=== PATIENT | male | born 1980 | race Caucasian/White ===

== ENCOUNTER 2023-04-20 08:21 | Emergency (ER) | payer BC, SELFPAY ==
[2023-04-20] VITALS (52 sets, daily range): BP systolic 102–150; BP diastolic 63–94; PULSE 50–81; RESP 10–40; TEMP 36.8; O2SAT 84–100; BMI 29.1
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
--- NOTE | 2023-04-20 08:30 | DI.RAD.S_ITS ---
PROCEDURE: XR CHEST 1V INDICATIONS: chest pain TECHNIQUE: One view of the chest was acquired. COMPARISON: None. FINDINGS: Surgical changes and devices: Thecal leads. Cholecystectomy clips. Lungs and pleura: Lungs are clear. No pleural effusions or pneumothorax. Mediastinum: Mediastinal contours appear normal. Heart size is normal. Bones and chest wall: No suspicious bony lesions. Overlying soft tissues appear unremarkable. IMPRESSION: No acute cardiopulmonary abnormality is seen. Dictated by: Renny Cavanaugh M.D. on 04/20/2023 at 8:49 Approved by: Renny Cavanaugh M.D. on 04/20/2023 at 8:49
--- NOTE | 2023-04-20 08:35 | PC.NURSE ---
Pt's o2 decreased to 88%. I asked him to take a few deep breathes and his o2 increased to 96% room air. Shortly after patients o2 dropped again, see vitals. Pt was placed on 3L NC. Patient's mentation was decreased and provider immediately at bedside. Pt still not responding well and provider performed sternal rub with minimal reaction. Provider ordered narcan, see MAR. After administration of medication there was no change in patients condition. He is able to respond, open his eyes and move his hands but is lethargic. New orderes placed and patient taken to CT with RN and cardiac catheterization technician.
[2023-04-20] MEDS: ASPIRIN 81 MG CHEW TAB 324 MG PO (08:38)
[2023-04-20 08:39] LABS: Add Manual Diff / Slide Review NO; Basophils Absolute Auto 100 /uL (0-100); Basophils Percent Auto 1.1 % (0-2); Eosinophils Absolute Auto 0 /uL (0-450); Hematocrit 44.5 % (41-53); Hemoglobin 15.8 g/dL (13.5-17.5); Lymphocytes Absolute Auto 1500 /uL (1100-4500); Lymphocytes Percent Auto 16.7 % (25-40); Mean Corpuscular HGB Conc 35.6 % (30-36); Mean Corpuscular Hemoglobin 31.3 PG (26-34); Mean Corpuscular Volume 87.9 fL (80-100); Monocytes Absolute Auto 700 /uL (0-900); Monocytes Percent Auto 7.3 % (3-14); Neutrophils Absolute Auto 6900 /uL (1500-7000); Neutrophils Percent Auto 74.9 % (50-75); Platelet Count 170 X10^3/uL (150-400); Red Blood Cell Count 5.06 X10^6/uL (4.5-5.9); White Blood Cell Count 9.3 X10^3/uL (4.5-11.0)
[2023-04-20] MEDS: NITROGLYCERIN 0.4 MG SL TAB SL (08:39)
[2023-04-20] MEDS: ONDANSETRON 4 MG/2 ML INJ IV (08:39)
[2023-04-20] MEDS: SODIUM CHLORIDE 0.9% 1,000 ML 150 ML IV (08:40)
[2023-04-20 08:41] LABS: Prothrombin Time 11.1 SECONDS (9.4-12.5)
[2023-04-20 08:43] LABS: PTT Partial Thromboplastin Tim 29 SECONDS (25.1-36.5)
[2023-04-20 08:48] LABS: Alanine Aminotransferase 27 IU/L (<50); Albumin 4.5 g/dL (3.5-5.0); Albumin Globulin Ratio 1.5 (1.0-2.8); Alkaline Phosphatase 74 U/L (38-126); Aspartate Aminotransferase 40 IU/L (17-59); BUN Creatinine Ratio 17.3 (6-22); Blood Urea Nitrogen 18 mg/dL (9-20); Carbon Dioxide 25 mmol/L (22-32); Chloride 102 mmol/L (98-107); Creatine Kinase 122 U/L (55-170); Estimated Glomerular Filt Rate > 60 mL/min (>60); Glucose 108 mg/dL (70-100); HEMOLYSIS < 15 (0-50); Lipase 69 U/L (23-300); Potassium 4.3 mmol/L (3.4-5.1); Sodium 135 mmol/L (137-145); Total Protein 7.5 g/dL (6.3-8.2)
[2023-04-20] MEDS: NALOXONE 0.4 MG/ML VIAL 0.2 MG IV ×2 (08:55→08:58)
--- NOTE | 2023-04-20 08:58 | DI.CT.S_ITS ---
PROCEDURE: CT ANGIO CHEST PE PROTOCOL INDICATIONS: chest pain,shortnessofbreath TECHNIQUE: After the administration of intravenous contrast, 2 mm thick sections acquired from the pulmonary apices to the posterior costophrenic angles. 3-dimensional maximum intensity projection (MIP) coronal and sagittal reformats were then acquired through the thorax. For radiation dose reduction, the following was used: automated exposure control, adjustment of mA and/or kV according to patient size. COMPARISON: [facility], CR, XR CHEST 1V, 04/20/2023, 8:31. FINDINGS: Image quality: Diagnostic. Pulmonary arteries: Pulmonary arteries are normal in size, and demonstrate no intraluminal filling defects to suggest central pulmonary embolism. Lungs and pleura: Lungs are clear. No pleural effusions or pneumothorax. Central and peripheral airways are patent. Mediastinum: Heart size is normal, without pericardial effusion. No mediastinal or hilar adenopathy. Thoracic aorta is normal in caliber and enhancement. Esophagus is normal in caliber, without hiatal hernia. Bones and chest wall: No suspicious bony lesions. Ribs and thoracic spine appear intact throughout. No axillary or supraclavicular adenopathy. No thyroid nodules which require sonographic follow up, per consensus guidelines. Upper Abdomen: Simple left renal cyst. Otherwise, visualized upper abdominal solid organs appear normal in the early arterial phase of enhancement. IMPRESSION: No pulmonary embolus. No acute cardiopulmonary process. Dictated by: Cynthia Ziegler M.D. on 04/20/2023 at 9:36 Approved by: Cynthia Ziegler M.D. on 04/20/2023 at 9:40
--- NOTE | 2023-04-20 08:58 | DI.CT.S_ITS ---
PROCEDURE: CT HEAD/BRAIN WO CON INDICATIONS: chest pain,shortnessofbreath,new ams TECHNIQUE: Noncontrast 4.5 mm thick angled axial sections acquired from the foramen magnum to the vertex, with coronal and sagittal reformats. For radiation dose reduction, the following was used: automated exposure control, adjustment of mA and/or kV according to patient size. COMPARISON: None. FINDINGS: Image quality: Excellent. CSF spaces: Basal cisterns are patent. No extra-axial fluid collections. Ventricles are normal in size and shape. Brain: No midline shift. No intracranial masses or hemorrhage. See-white matter interface is normal. Skull and face: Calvarium and visualized facial bones are intact, without suspicious lesions. Sinuses: Visualized sinuses and mastoids are clear. IMPRESSION: 1. No acute intracranial process. Dictated by: Cynthia Ziegler M.D. on 04/20/2023 at 9:40 Approved by: Cynthia Ziegler M.D. on 04/20/2023 at 9:41
[2023-04-20 08:59] LABS: NT-proBNP (BNP-Adult 18+) < 20 pg/mL (<125); Troponin I < 0.012 ng/mL (0.01-0.034)
--- NOTE | 2023-04-20 09:00 | PC.NURSE ---
Patient states a couple years ago he was taking a shower and woke up in the hospital. Pt does not see a dna sequencing associate. He is unable to provide me with further information.
[2023-04-20 09:05] LABS: Ethanol (ETOH) < 10 mg/dL
[2023-04-20 09:10] LABS: D Dimer 220 ng/ml (<500)
--- NOTE | 2023-04-20 09:20 | PC.NURSE ---
RN with patient to CT. Patient on monitor and storage bin tender, maintaining o2 at 3L NC.
[2023-04-20 09:44] LABS: UR Morphine/Opiate cutoff 300 Negative (Negative); Ur Creatinine Normal (Normal); Ur Specific Gravity Normal (Normal); Urine Amphetamines Negative (Negative); Urine Barbiturates Negative (Negative); Urine Benzodiazepines Negative (Negative); Urine Cocaine Negative (Negative); Urine MDMA Negative (Negative); Urine Methadone Negative (Negative); Urine Methamphetamines Negative (Negative); Urine Oxycodone Negative (Negative); Urine Phencyclidine Negative (Negative); Urine Tetrahydrocannabinol Negative (Negative); Urine Tricyclic Antidepressant Negative (Negative); Urine pH Normal (Normal)
--- NOTE | 2023-04-20 09:50 | PC.NURSE ---
Pt unlocked his phone and provided me with his girlfriend Gibran's phone number to call. I got ahold of gibran and was able to pass the phone off to patient.
--- NOTE | 2023-04-20 10:55 | PC.NURSE ---
Pt having increased agitation, wants to get up out of bed and leave, is unable to fully open his eyes, having difficulty conversing his needs. Pt informed he needs to stay with us for his safety. Pt continuing to attempt to get out of bed. Provider at bedside, new orders placed see MAR. Pt received 2 separate doses of ativan and is now laying in bed. Oxygen saturation is good.
[2023-04-20] MEDS: LORazepam 2 MG/ML INJ 1 MG IV ×2 (10:57→11:14)
[2023-04-20 11:00] LABS: Troponin I < 0.012 ng/mL (0.01-0.034)
[2023-04-20] MEDS: levETIRAcetam 1,000 MG in SODIUM CHLORIDE 0.9% 100 ML 440 MG IV (11:16)
[2023-04-20 11:25] LABS: Prolactin 7.2 ng/mL (3.7-17.9)
--- NOTE | 2023-04-20 11:39 | PC.NURSE ---
provider at bedside with patient discussing plan of care. Patient currently cooperative and agrees to more imaging.
--- NOTE | 2023-04-20 11:42 | DI.CT.S_ITS ---
PROCEDURE: CT ANGIO HEAD AND NECK INDICATIONS: facial droop, seizure vs. stroke TECHNIQUE: After the administration of intravenous contrast, 1 mm thick sections acquired from the aortic arch through the [place] of [place]. 3-dimensional estwgqd-bcmrqtgsf-ynobsilrvh (MIP) and/or volume rendering reformats were acquired of the central intracranial vasculature and neck separately. For radiation dose reduction, the following was used: automated exposure control, adjustment of mA and/or kV according to patient size. COMPARISON: [facility], CT, CT HEAD/BRAIN WO CON, 04/20/2023, 9:12. FINDINGS: Image quality: Diagnostic. BRAIN: CSF spaces: Ventricles are normal in size and shape. Basal cisterns are patent. No extra-axial fluid collections. Brain: No significant abnormality of the brain can be seen. Skull and face: Calvarium and facial bones appear intact, without suspicious lesions. Orbits appear normal. Sinuses: Sinuses and mastoids are clear. HEAD CT ANGIOGRAPHY: Anterior circulation: Intracranial internal carotid arteries are normal in size and flow. The flow within the paired anterior cerebral arteries is normal and symmetric. The flow within the middle cerebral arteries is normal and symmetric. The anterior communicating artery is seen. No aneurysms are seen. Posterior circulation: Vertebral arteries are codominant. Visualized portions of the vertebral arteries demonstrate normal caliber, and join to form a normal appearing basilar artery. Flow within the posterior cerebral arteries is normal and symmetric. No aneurysms are seen. NECK CT ANGIOGRAPHY: Carotid system: The great vessels demonstrate a conventional anatomy as they arise from the aortic arch. The origins of the common carotid arteries appear patent. The common carotid arteries demonstrate normal caliber and courses. The bifurcation regions are both widely patent. The internal carotid arteries demonstrate normal calibers and courses. Posterior circulation: The origins of the vertebral arteries both appear widely patent. The more superior extracranial portions of both vertebral arteries also demonstrate normal courses and calibers. They join to form a normal appearing basilar artery. Soft tissues: Visualized neck soft tissues demonstrate no suspicious abnormalities. Bones: No suspicious bony lesions. Visualized cervical spine appears normally aligned. IMPRESSION: 1. No acute intracranial process. 2. No areas of hemodynamically significant stenosis, vascular occlusion or aneurysmal dilation within the anterior circulation. 3. No areas of hemodynamically significant stenosis, vascular occlusion or aneurysmal dilation within the neck vasculature. 4. No areas of hemodynamically significant stenosis, vascular occlusion or aneurysmal dilation within the posterior circulation. Any quantitative measurements of stenosis were performed using NASCET criteria. Dictated by: Cynthia Ziegler M.D. on 04/20/2023 at 13:16 Approved by: Cynthia Ziegler M.D. on 04/20/2023 at 13:21
--- NOTE | 2023-04-20 13:29 | PC.NURSE ---
Patient resting in bed, snoring. He is in and out of sleep and is still confused initially when he wakes up. Pt is cooperative at this time.
--- NOTE | 2023-04-20 14:41 | PC.NURSE ---
Pt able to stand and walk to the bathroom, he is still complaining of generalized weakness and slouching when he walks. Pt more alert and states he remembers us giving him narcan. Pt questioned why we administered narcan, I informed patient that because his oxygen decreased and mentation decreased we were concerned for a possible overdose. Pt expressed understanding. He is now back in bed laying down, bilingual social worker in the room with him.
--- NOTE | 2023-04-20 15:22 | CM.SWNOTE ---
ED FINISH PHOTOGRAPHER Note FINISH PHOTOGRAPHER receives consult due to patient's girlfriend's concern for patient's presentation and ED encounter today. Patient is 42 y/o male who presents to ED via EMS due to incident while driving to work patient felt SOB, dizzy, nauseous and chest pain. Patient had full work up in ED to rule out seizure vs. stroke. Patient's PCP is Dr. Talon Goodrich in [place], [place]. Patient has [employer] insurance. FINISH PHOTOGRAPHER enters room to meet with patient, present in room is patient's girlfriend who chooses to step out of room. Per [facility], patient has hx of Bipolar 1 disorder, undifferentiated Schizophrenia, and Generalized Seizure disorder. Patient presents as A/Ox4, fatigued and coherent. Patient endorses he lives in [place] with girlfriend and was on his way to work when he felt these symptoms. Patient endorses he remembers being administered Narcan by EMS. Patient states he does not use any drugs of any kind, takes his rx as prescribed and has been prescribed muscle relaxers due to chronic pain. Patient endorses he feels safe to d/c to home, patient denies any questions or concerns. FINISH PHOTOGRAPHER offers to contact patient's PCP and request f/u appt, patient endorses agreement and understanding. FINISH PHOTOGRAPHER calls Dr. Goodrich's office and schedules PCP f/u for Thursday04/27/23 at 12:05pm check in. FINISH PHOTOGRAPHER reviews this with patient and girlfriend who indicate agreement and understanding. Plan: patient to d/c to home upon medical clearance with Keppra rx and recommendation to f/u with Neurology referral. Patient to f/u with PCP Dr. Goodrich on Friday 04/27, patient to receive doctor's note from work. AZALEA Bobby
--- NOTE | 2023-04-20 15:37 | PC.NURSE ---
Patient given back his belongings to change into clothes. Security is present to transport pt's firearm to his girlfriend Sasha's possession when exiting the hospital.
== END 2023-04-20 15:39 | disposition home or self-care (01) ==
PROVIDERS: Emergency Provider Emergency Medicine
DX: R07.9 Chest pain, unspecified (principal); R56.9 Unspecified convulsions; N28.1 Cyst of kidney, acquired
CPT/HCPCS: 70450; 70496; 70498; 71045; 71275; 80053; 80305; 80320; 82550; 82962; 83690; 83880; 84146; 84443; 84484; 85025; 85379; 85610; 85730; 93005; 96365; 96375; 96376; 99285; J1953; J2060; J2310; J2405; Q9967

== ENCOUNTER → 2023-05-08 09:36 | Outpatient (CLI) | payer BC, SELFPAY ==
[2023-05-08 10:46] LABS: Hemoglobin A1C% w Est Avg Glu 4.9 % (4.0-6.0)
[2023-05-08 11:01] LABS: Cholesterol 199 mg/dL (140-199); HDL Cholesterol 58 mg/dL (40-60); LDL Cholesterol Calculated 110 mg/dL (<100); Triglycerides 156 mg/dL (35-150)
== END ==
PROVIDERS: PCP Family Medicine; Referring Provider Family Medicine; Visit Provider Family Medicine
DX: Z86.74 Personal history of sudden cardiac arrest (principal); R07.9 Chest pain, unspecified
CPT/HCPCS: 36415; 80061; 83036

== ENCOUNTER 2023-05-18 23:49 | Emergency (ER) | payer BC, MEDICARE, SELFPAY ==
[2023-05-18 23:56] VITALS: BP 122/78; PULSE 63; RESP 16; TEMP 36.6; O2SAT 97; BMI 27.3
== END 2023-05-19 00:30 | disposition left against medical advice (07) ==
PROVIDERS: Emergency Provider Emergency Medicine; PCP Family Medicine
DX: R06.02 Shortness of breath (principal)
CPT/HCPCS: 99281

== ENCOUNTER → 2023-05-21 09:22 | Outpatient (CLI) | payer BC, SELFPAY | PROVIDERS: PCP Family Medicine; Referring Provider Family Medicine; Visit Provider Family Medicine | DX: R06.02 Shortness of breath (principal); F17.200 Nicotine dependence, unspecified, uncomplicated | CPT/HCPCS: 94060; 94726; 94729 ==

== ENCOUNTER → 2023-05-25 09:30 | Outpatient (CLI) | payer BC, SELFPAY ==
--- NOTE | 2023-05-25 09:31 | DI.NM.S_ITS ---
PROCEDURE: NM NANDINI PERF SPECT R&S PHARM Rest and pharmacological stress myocardial perfusion SPECT with gated imaging and ejection fraction RADIOPHARMACEUTICAL: 25 mCi Tc-99m tetrafosmin IV at rest and 27.5 mCi Tc-99m tetrafosmin IV at peak effect of pharmacological stress. Uah-kcb-sxrkzhji was performed. INDICATIONS: chest pain, hx of cardiac arrest TECHNIQUE: Radiopharmaceutical was injected at peak stress test, and also at rest. SPECT images were obtained. SPECT myocardial perfusion images were displayed in short axis, horizontal long axis, and vertical long axis views. Gated images were reviewed using ID Quantique software. COMPARISON: None. CARDIAC STRESS: A pharmacologic stress test was performed under the supervision of an attending staff, using an infusion of lexiscan 0.4mg IV x1. Hemodynamic data: There is normal blood pressure and heart rate response to pharmacologic stress. Symptoms: The patient had chest pain at rest that worsened with lexiscan. Aminophylline: none EKG: No diagnostic changes of ischemia; no ectopy. FINDINGS: Raw data: There is good myocardial uptake of radiotracer. No significant motion artifacts. Left ventricle function: Gated images demonstrate normal left ventricular wall thickening. No segmental wall motion abnormalities. No transient ischemic dilation; TID is 0.93 (normal less than 1.3). Left ventricle resting end diastolic volume is 144 mL. Left ventricle stress ejection fraction is 69%; normal range is above 45%. Myocardial perfusion: No fixed or reversible perfusion defects based on stress prone images. IMPRESSION: Low risk, normal pharm nuclear stress test. Atypical chest pain at rest that worsened with lexiscan. Dictated by: Shahid Villalobos MD on 05/26/2023 at 12:50 Approved by: Shahid Villalobos MD on 05/26/2023 at 12:59
== END ==
PROVIDERS: PCP Family Medicine; Referring Provider Family Medicine; Visit Provider Family Medicine
DX: R07.9 Chest pain, unspecified (principal); Z86.74 Personal history of sudden cardiac arrest
CPT/HCPCS: 78452; 93017; A9502; J2785

== ENCOUNTER 2023-07-11 14:59 | Inpatient (IN) | payer BC, SELFPAY ==
[2023-07-11] VITALS (14 sets, daily range): BP systolic 113–148; BP diastolic 71–89; PULSE 54–71; RESP 16–24; TEMP 36.6; O2SAT 95–100; BMI 29.7
--- NOTE | 2023-07-11 15:17 | ED_ITS ---
HPI - GI Bleed General Chief complaint: GI Bleed Stated complaint: abd pain, concerned GI bleed, blood in stool Time Seen by Provider: 07/11/23 15:17 Source: patient Mode of arrival: Ambulatory History of Present Illness HPI Narrative: 42-year-old gentleman with a history of bipolar disorder currently stable, attempting to stop smoking and making progress with this. No prior history of upper GI bleeding, ulcers, excessive ibuprofen, aspirin, alcohol use. he does have a history of hemorrhoids and is scheduled for colonoscopy. Has a history of congestive heart failure and had a cardiac event at some point last year. He has not currently on any anticoagulants. He states he was feeling fine until approximately 3 hours prior to arrival. Began having crampy abdominal pain and then noticed an episode of melena followed by 3 other episodes of dark red blood with clots and increasing abdominal pain. He is nauseated but has not been vomiting yet. Complains of overall gentleman malaise, he does note that he has been having intermittent episodes of chest pain over the last number of weeks that seems intermittent and described as sharp and stabbing. He has had no recent fevers, cough, chills Related Data Home Medications Medication Instructions Recorded Confirmed buspirone 5 mg tablet 5 mg PO BID 04/28/23 07/09/23 lamotrigine 100 mg tablet 100 mg PO DAILY 04/28/23 07/09/23 (Lamictal) paroxetine HCl 10 mg tablet 10 mg PO DAILY 04/28/23 07/09/23 tizanidine 2 mg capsule 2 mg PO TID PRN 04/28/23 07/09/23 Previous Rx's Medication Instructions Recorded varenicline 0.5 mg (11)-1 mg (42) See Rx Instructions PO PER PKG DIR 06/09/23 tablets in a dose pack (LoveThatFittix #53 ea Starting Month Box) Allergies Allergy/AdvReac Type Severity Reaction Status Date / Time tramadol Allergy Verified 07/11/23 18:54 Review of Systems Review of Systems Narrative: Pertinent positive and negative findings as per HPI Patient History Medical History Chest pain Back pain Tremor Bipolar 1 disorder Renal cyst Surgical History History of cholecystectomy Social History marital status: unmarried,living together details: GF number of children: 1 occupational status: employed Previous occupational history: utilities Smoking Status: Current some day smoker Smoking Status: Current some day smoker tobacco type: cigarettes alcohol intake frequency: 0-2 drinks per day Alcohol type: beer Substance Use Type: does not use Exam Initial Vital Signs Initial Vital Signs: Vital Signs Temperature 97.9 F 07/11/23 15:00 Pulse Rate 69 07/11/23 15:00 Respiratory Rate 18 07/11/23 15:00 Blood Pressure 133/89 07/11/23 15:00 Pulse Oximetry 97 07/11/23 15:00 Oxygen Delivery Method Room Air 07/11/23 15:00 General: Healthy appearing, with moderate abdominal pain but Able to give a complete and coherent history. Well-nourished well-developed HEENT: Moist mucous membranes, normal sclera with reactive pupils, Neck: No JVD, supple Respiratory: Lungs are clear to auscultation, no wheezing no rales no rhonchi. Full and symmetrical air movement Cardiac: Regular rate and rhythm no murmurs no bruits Abdomen: Soft, diffusely tender with significant pain in the epigastrium and left upper quadrant area. No rebound or guarding. Rectal exam does show melena. No hematochezia. Skin: Warm and dry, no rashes Neurologic: Grossly neurologically intact with no obvious asymmetries or abnormalities Extremities: No trauma, well perfused Psych: Cooperative, appropriate insight and affect Course Orders Ordered: ED Orders 07/11/23 15:16 Complete Blood Count AUTO DIFF Stat Comprehensive Metabolic Panel Stat Lactate (Lactic Acid) Stat Lipase Stat Type and Screen Stat 07/11/23 15:27 EKG-12 Lead Stat 07/11/23 16:18 CT abdomen pelvis w con Stat 07/11/23 16:35 Hemoglobin and Hematocrit Stat 07/11/23 18:30 Blood Culture Stat Hydromorphone HCl (Hydromorphone 0.5 Mg Inj) 0.5 mg IV Q15MIN PRN PRN Reason: Pain, Last Admin: 07/11/23 16:53 Dose: 0.5 mg Documented By: Admin: 07/11/23 15:57 Dose: 0.5 mg Documented By: KD Hydromorphone HCl (Hydromorphone 0.5 Mg Inj) 0.5 mg IV Q2H PRN PRN Reason: Pain, Severe (7-10) Sodium Chloride (Normal Saline 0.9%) 1,000 mls @ 100 mls/hr IV CONT RENNY Naloxone HCl (Naloxone 0.4 Mg/Ml Vial) 0.2 mg IV Q2MIN PRN PRN Reason: Opiate Reversal Ondansetron HCl (Ondansetron 4 Mg/2 Ml Inj) 4 mg IV NOW PRN PRN Reason: Nausea And Vomiting Ondansetron HCl (Ondansetron 4 Mg Odt) 4 mg PO NOW PRN PRN Reason: Nausea And Vomiting Ondansetron HCl (Ondansetron 4 Mg/2 Ml Inj) 4 mg IV Q8HR PRN PRN Reason: Nausea And Vomiting Discontinued Medications Sodium Chloride (Normal Saline 0.9%) 1,000 mls @ 1,000 mls/hr IV BOLUS ONE Stop: 07/11/23 16:36 Last Infusion: 07/11/23 16:55 Dose: Infused Documented By: Admin: 07/11/23 15:55 Dose: 1,000 mls/hr Documented By: KD Piperacillin Sod/Tazobactam (Sod 4.5 gm/ Sodium Chloride) 100 mls @ 200 mls/hr IV NOW ONE Stop: 07/11/23 18:31 Ondansetron HCl (Ondansetron 4 Mg/2 Ml Inj) 4 mg IV NOW ONE Stop: 07/11/23 15:38 Last Admin: 07/11/23 15:57 Dose: 4 mg Documented By: KD Pantoprazole Sodium (Pantoprazole 40 Mg Vial) 80 mg IV NOW ONE Stop: 07/11/23 15:38 Last Admin: 07/11/23 15:56 Dose: 80 mg Documented By: KD Vital Signs Vital signs: Vital Signs - 8 hr 07/11/23 15:00 07/11/23 15:36 07/11/23 15:38 Temperature 97.9 F Pulse Rate 69 65 Respiratory Rate 18 Blood Pressure 133/89 128/81 Pulse Oximetry 97 Oxygen Delivery Method Room Air 07/11/23 15:38 07/11/23 16:00 07/11/23 16:30 Temperature Pulse Rate 64 65 57 L Respiratory Rate 22 20 22 Blood Pressure Pulse Oximetry 98 98 100 Oxygen Delivery Method 07/11/23 16:49 07/11/23 16:49 07/11/23 17:00 Temperature Pulse Rate 65 63 Respiratory Rate 24 22 Blood Pressure 143/82 H Pulse Oximetry 99 98 Oxygen Delivery Method 07/11/23 17:00 07/11/23 17:46 07/11/23 17:48 Temperature Pulse Rate 61 Respiratory Rate Blood Pressure 139/84 148/81 H Pulse Oximetry 97 Oxygen Delivery Method 07/11/23 17:48 07/11/23 18:00 07/11/23 18:00 Temperature Pulse Rate 56 L 59 L Respiratory Rate 19 23 Blood Pressure 139/89 Pulse Oximetry 95 99 Oxygen Delivery Method 07/11/23 18:30 07/11/23 18:30 Temperature Pulse Rate 58 L Respiratory Rate 23 Blood Pressure 132/88 Pulse Oximetry 99 99 Oxygen Delivery Method Room Air MDM - GI Bleed Lab Data 07/11/23 16:35 07/11/23 15:16 Labs: Lab Results 07/11/23 07/11/23 Range/Units 15:16 16:35 WBC 7.9 (4.5-11.0) X10^3/uL RBC 4.46 L (4.5-5.9) X10^6/uL Hgb 14.2 12.9 L (13.5-17.5) g/dL Hct 40.8 L 36.9 L (41-53) % MCV 91.4 (80-100) fL MCH 31.9 (26-34) PG MCHC 34.9 (30-36) % RDW 13.1 (11.6-14.8) % Plt Count 178 (150-400) X10^3/uL Neut % (Auto) 68.6 (50-75) % Lymph % (Auto) 21.9 L (25-40) % [place] % (Auto) 8.4 (3-14) % Eos % (Auto) 0.1 L (2-4) % Baso % (Auto) 1.0 (0-2) % Neut # (Auto) 5400 (0855-7169) /uL Lymph # (Auto) 1700 (7358-9699) /uL [place] # (Auto) 700 (0-900) /uL Eos # (Auto) 0 (0-450) /uL Baso # (Auto) 100 (0-100) /uL Sodium 137 (137-145) mmol/L Potassium 4.4 (3.4-5.1) mmol/L Chloride 99 (98-107) mmol/L Carbon Dioxide 28 (22-32) mmol/L BUN 20 (9-20) mg/dL Creatinine 1.18 (0.66-1.25) mg/dL Estimated GFR > 60 (>60) mL/min BUN/Creatinine Ratio 16.9 (6-22) Glucose 105 H (70-100) mg/dL Calcium 9.2 (8.4-10.2) mg/dL Total Bilirubin 0.5 (0.2-1.3) mg/dL AST 38 (17-59) IU/L ALT 26 (<50) IU/L Alkaline Phosphatase 85 (38-126) U/L Total Protein 7.3 (6.3-8.2) g/dL Albumin 4.3 (3.5-5.0) g/dL Globulin 3.0 (1.7-4.1) g/dL Albumin/Globulin Ratio 1.4 (1.0-2.8) Lipase 141 (23-300) U/L Blood Type O Positive Antibody Screen Negative Urine Dip Bedside Urine Glucose Negative Bedside Urine Bilirubin - Negative Bedside Urine Ketone - Negative Urine Specific [place] 1.010 Bedside Urine Occult Blood - Negative Bedside Urine pH 6.0 Bedside Urine Protein - Negative Bedside Urine Urobilinogen - Negative Bedside Urine Nitrite - Negative Bedside Urine Leukocytes - Negative Esterase MDM Narrative Medical decision making narrative: CC: Acute onset abdominal pain with 3 episodes of melena Complicating co-morbidities: No prior history of GI bleeding, bipolar disorder use a smoker but trying to stop, history of congestive heart failure Data collected from: patient, partner Medical records reviewed: Cardiology notes from June 11, 2023 with referral for chest pain or reviewed. Was not felt to be significant chest pain with nuclear myocardial perfusion study in May showing low risk. Echocardiogram is ordered. Medical records from the cardiology notes suggest that the patient also carries a diagnosis is schizophrenia and possible seizure disorder. Patient did not offer this Differential considered: Upper GI bleed, lower GI bleed Exam documented above, pertinent findings include: 42-year-old gentleman who is acutely uncomfortable but able to fully cooperate with exam. Significant upper abdominal tenderness with moderate diffuse abdominal tenderness. He is having melena without hematochezia Lab Test results independently reviewed as above. Pertinent findings: CBC shows H and H of 14.2 and 40.8. This compares to 2 months ago with a hemoglobin of 15.8 and 44.5. No leukocytosis and normal platelets Chemistries including liver studies are entirely benign. No evidence of acute pancreatitis Independently reviewed EKG: EKG shows sinus rhythm at a rate of 61. Normal intervals, normal axis. No acute ischemic changes Imaging studies independently reviewed: Consultations: Care is reviewed with Dr. Aleman, surgeon on-call. Given his hemodynamic stability, not obvious initial anemia and significant abdominal pain she agrees with CT scan of the abdomen to see if alternate explanations for his bleeding and pain might be identified. CT scan returns and shows generalized wall thickening beginning at the level of the mid transverse colon down through the rectum. Proximal colon is within normal limits. This is the watershed area and Dr. Aleman felt that this was consistent with ischemic colitis. She will happily consult. Supportive management would be appropriate at this time. Care is reviewed with Dr. Parkinson, hospitalist. Will obtain lactic acid and blood cultures and begin Zosyn. Treatments: Fluids, parenteral Dilaudid Discussion: 42-year-old gentleman with acute onset abdominal pain and what initially seemed to be melena and what is more likely to be sloughing colon due to ischemic colitis. There has been a slight drop in H&H but certainly not dramatic upper GI bleed that it would explain the degree of melena that he is described. Patient will be admitted to the hospitalist service for additional observation and workup with surgical consultation obtained. Patient currently is hemodynamically stable and safe for transfer to the floor Discharge Plan Departure Patient Disposition: Admitted As Inpatient Clinical Impression: Acute ischemic colitis, Bipolar 1 disorder Anemia Qualifiers: Anemia type: unspecified type Qualified Code(s): D64.9 - Anemia, unspecified Admit Date/Time: 07/11/23 18:35 Admit Provider: Facundo Parkinson
[2023-07-11 15:32] LABS: Add Manual Diff / Slide Review NO; Basophils Absolute Auto 100 /uL (0-100); Eosinophils Absolute Auto 0 /uL (0-450); Eosinophils Percent Auto 0.1 % (2-4); Hematocrit 40.8 % (41-53); Hemoglobin 14.2 g/dL (13.5-17.5); Lymphocytes Absolute Auto 1700 /uL (1100-4500); Lymphocytes Percent Auto 21.9 % (25-40); Mean Corpuscular HGB Conc 34.9 % (30-36); Mean Corpuscular Hemoglobin 31.9 PG (26-34); Mean Corpuscular Volume 91.4 fL (80-100); Monocytes Absolute Auto 700 /uL (0-900); Monocytes Percent Auto 8.4 % (3-14); Neutrophils Absolute Auto 5400 /uL (1500-7000); Neutrophils Percent Auto 68.6 % (50-75); Platelet Count 178 X10^3/uL (150-400); Red Blood Cell Count 4.46 X10^6/uL (4.5-5.9); Red Cell Distribution Width 13.1 % (11.6-14.8); White Blood Cell Count 7.9 X10^3/uL (4.5-11.0)
[2023-07-11 15:49] LABS: Alanine Aminotransferase 26 IU/L (<50); Albumin 4.3 g/dL (3.5-5.0); Albumin Globulin Ratio 1.4 (1.0-2.8); Alkaline Phosphatase 85 U/L (38-126); Aspartate Aminotransferase 38 IU/L (17-59); BUN Creatinine Ratio 16.9 (6-22); Bilirubin Total 0.5 mg/dL (0.2-1.3); Blood Urea Nitrogen 20 mg/dL (9-20); Calcium 9.2 mg/dL (8.4-10.2); Carbon Dioxide 28 mmol/L (22-32); Chloride 99 mmol/L (98-107); Estimated Glomerular Filt Rate > 60 mL/min (>60); Glucose 105 mg/dL (70-100); HEMOLYSIS < 15 (0-50); Lipase 141 U/L (23-300); Potassium 4.4 mmol/L (3.4-5.1); Sodium 137 mmol/L (137-145); Total Protein 7.3 g/dL (6.3-8.2)
[2023-07-11] MEDS: SODIUM CHLORIDE 0.9% 1,000 ML 1000 ML IV (15:55)
[2023-07-11] MEDS: PANTOPRAZOLE 40 MG VIAL 80 MG IV (15:56)
[2023-07-11] MEDS: HYDROMORPHONE 0.5 MG INJ IV ×4 (15:57→22:02)
[2023-07-11] MEDS: ONDANSETRON 4 MG/2 ML INJ IV ×2 (15:57→22:02)
--- NOTE | 2023-07-11 16:18 | DI.CT.S_ITS ---
PROCEDURE: CT ABDOMEN PELVIS W CON INDICATIONS: abdominal pain. The patient gives additional history of hematochezia. TECHNIQUE: After the administration of intravenous contrast, axial sections acquired from the lung bases to the pubic symphysis. Coronal and sagittal reformats were performed. For radiation dose reduction, the following was used: automated exposure control, adjustment of mA and/or kV according to patient size. COMPARISON: [facility], CT, CT ANGIO CHEST PE PROTOCOL, 04/20/2023, 9:12. FINDINGS: Image quality: Diagnostic. Lower Chest: There is a small hiatal hernia. ABDOMEN: Liver: No solid mass. Gallbladder: Cholecystectomy. Biliary ducts: No biliary dilation. Pancreas: No ductal dilation. Spleen: Size is within normal limits. Adrenal Glands: No adrenal nodules. Kidneys and Ureters: There is mild right-sided hydronephrosis and hydroureter, without a cause of obstruction seen. No left-sided hydronephrosis is seen. No solid mass. No complex renal cystic lesion which requires follow up. Stomach and Bowel: Generalized wall thickening can be seen of the distal colon, beginning at the level of the mid transverse colon and continuing through the rectum. The more proximal colon is within normal limits. No dilated loops of small bowel are seen. A normal appendix is noted. The stomach is decompressed at the time of this study, limiting its evaluation. Peritoneum: No abnormal intraperitoneal fluid. No free air. Ventral Wall: No significant ventral hernia. Abdominal Nodes: No retroperitoneal or mesenteric adenopathy by size criteria. Vessels: Aorta and inferior vena cava are normal in size. PELVIS: Pelvic Organs: Unremarkable. Bladder: No bladder wall thickening, accounting for underdistention. Pelvic Nodes: No enlarged lymph nodes. Miscellaneous: No inguinal hernias are seen. Bones: No aggressive osseous abnormality. There is a right-sided power pack seen with a thoracic stimulator. IMPRESSION: Moderate distal colonic wall thickening can be seen. Please correlate with potential infectious and inflammatory causes of colitis. No findings of perforation or abscess can be seen. When clinically appropriate (following adequate treatment of the patient's current clinical episode) a colonoscopy is recommended for further evaluation for a potential underlying mass (if not already recently done). There is mild right-sided hydroureter and hydronephrosis, without a cause of obstruction seen on these images. Additional findings: Small hiatal hernia Cholecystectomy Thoracic stimulator, with a right-sided power pack Normal appendix Dictated by: Kory Dominguez M.D. on 07/11/2023 at 16:17 Approved by: Kory Dominguez M.D. on 07/11/2023 at 16:20
[2023-07-11 16:47] LABS: Hematocrit 36.9 % (41-53); Hemoglobin 12.9 g/dL (13.5-17.5)
--- NOTE | 2023-07-11 18:43 | PM.HP.1 ---
History of Present Illness History of Present Illness Date Patient Seen: 07/11/23 Time Patient Seen: 18:43 Chief complaint: abd pain, concerned GI bleed, blood in stool Narrative: The patient is a 42-year-old male with history of tobacco use and now does not smoke. He also has a history of possible heart failure which is being evaluated by a display trimmer at [facility]. The patient has history of polyps in his had 6 colonoscopies in the past. He presents with acute lower abdominal pain and passing dark-colored blood 3-4 times today. His symptoms all began today and he denies any issues yesterday. He has had no recent diarrhea, nausea, or vomiting. He has no history of GI bleeding. He was seen in the emergency department and a CT scan indicated ischemic colitis of the transverse and descending colon. The patient was discussed with Dr. Aleman, of surgery who recommended symptomatic treatment with IV fluids, antibiotics, and blood if required. The patient has no other symptoms of anemia including dyspnea or chest pain. He does feel somewhat fatigued. His pain is in the left and right lower quadrant and does not radiate. It is episodic. He does note a history of opiate tolerance from previous injuries and long-term use of opiates. He has not currently using long-term opiates. [facility] Medical History Chest pain Back pain Tremor Bipolar 1 disorder Renal cyst Surgical History History of cholecystectomy Social History marital status: unmarried,living together details: GF number of children: 1 occupational status: employed Previous occupational history: utilities Smoking Status: Current some day smoker Meds Home Medications and Allergies Home Medications Medication Instructions Recorded Confirmed Type buspirone 5 mg tablet 5 mg PO BID 04/28/23 07/09/23 History lamotrigine 100 mg tablet 100 mg PO DAILY 04/28/23 07/09/23 History (Lamictal) paroxetine HCl 10 mg tablet 10 mg PO DAILY 04/28/23 07/09/23 History tizanidine 2 mg capsule 2 mg PO TID PRN 04/28/23 07/09/23 History varenicline 0.5 mg (11)-1 mg (42) See Rx Instructions PO PER PKG DIR 06/09/23 07/09/23 Rx tablets in a dose pack ([employer] #53 ea Starting Month Box) Allergies Allergy/AdvReac Type Severity Reaction Status Date / Time tramadol Allergy Verified 07/09/23 07:58 Review of Systems Review of Systems Narrative: All else reviewed and otherwise unremarkable except as noted in the history and physical. Exam Vital Signs (past 8 hours): - 07/11/23 15:00 07/11/23 15:36 07/11/23 15:38 Temperature 97.9 F Pulse Rate 69 65 Respiratory Rate 18 Blood Pressure 133/89 128/81 Pulse Oximetry 97 Oxygen Delivery Method Room Air 07/11/23 15:38 07/11/23 16:00 07/11/23 16:30 Temperature Pulse Rate 64 65 57 L Respiratory Rate 22 20 22 Blood Pressure Pulse Oximetry 98 98 100 Oxygen Delivery Method 07/11/23 16:49 07/11/23 16:49 07/11/23 17:00 Temperature Pulse Rate 65 63 Respiratory Rate 24 22 Blood Pressure 143/82 H Pulse Oximetry 99 98 Oxygen Delivery Method 07/11/23 17:00 07/11/23 17:46 07/11/23 17:48 Temperature Pulse Rate 61 Respiratory Rate Blood Pressure 139/84 148/81 H Pulse Oximetry 97 Oxygen Delivery Method 07/11/23 17:48 07/11/23 18:00 07/11/23 18:00 Temperature Pulse Rate 56 L 59 L Respiratory Rate 19 23 Blood Pressure 139/89 Pulse Oximetry 95 99 Oxygen Delivery Method 07/11/23 18:30 07/11/23 18:30 Temperature Pulse Rate 58 L Respiratory Rate 23 Blood Pressure 132/88 Pulse Oximetry 99 Oxygen Delivery Method Oxygen Delivery Method Room Air Narrative Exam Narrative: NAD, slightly uncomfortable. Fluent speech. HEENT atraumatic, EOMI, anicteric sclera, symmetric pupils. Oropharynx unremarkable, no droop. Neck is supple, no adenopathy, midline trachea. Lungs are clear with normal rate and effort. Heart is regular without murmur gallop or rub. Abdomen is tender in the right and left lower quadrants without guarding or rebound. Extremities are free of edema with good pedal and radial pulses. Skin is free of rash or lesions. Joints are not swollen or deformed. Objective Imaging CT scan - abdomen: Radiologist's impression: Moderate distal colonic wall thickening can be seen. Please correlate with potential infectious and inflammatory causes of colitis. No findings of perforation or abscess can be seen. When clinically appropriate (following adequate treatment of the patient's current clinical episode) a colonoscopy is recommended for further evaluation for a potential underlying mass (if not already recently done). There is mild right-sided hydroureter and hydronephrosis, without a cause of obstruction seen on these images. Additional findings: Small hiatal hernia Cholecystectomy Thoracic stimulator, with a right-sided power pack Normal appendix Labs 07/11/23 16:35 07/11/23 15:16 Labs: Laboratory Results - last 24 hr 07/11/23 07/11/23 15:16 16:35 WBC 7.9 RBC 4.46 L Hgb 14.2 12.9 L Hct 40.8 L 36.9 L MCV 91.4 MCH 31.9 MCHC 34.9 RDW 13.1 Plt Count 178 Neut % (Auto) 68.6 Lymph % (Auto) 21.9 L [place] % (Auto) 8.4 Eos % (Auto) 0.1 L Baso % (Auto) 1.0 Neut # (Auto) 5400 Lymph # (Auto) 1700 [place] # (Auto) 700 Eos # (Auto) 0 Baso # (Auto) 100 Sodium 137 Potassium 4.4 Chloride 99 Carbon Dioxide 28 BUN 20 Creatinine 1.18 Estimated GFR > 60 BUN/Creatinine Ratio 16.9 Glucose 105 H Calcium 9.2 Total Bilirubin 0.5 AST 38 ALT 26 Alkaline Phosphatase 85 Total Protein 7.3 Albumin 4.3 Globulin 3.0 Albumin/Globulin Ratio 1.4 Lipase 141 Blood Type O Positive Antibody Screen Negative Assessment & Plan Assessment & Plan narrative: 1. Rectal bleeding, present on admission and active. 2. Probable ischemic colitis of the transverse and descending colon, present on admission and active. 3. Bipolar 1, present on admission and stable. 4. History of recurrent colonic polyps and multiple colonoscopies in the past, present on admission and active. 5. History of congestive heart failure with other details not available, present on admission and stable. Plan: -IV fluids and IV Zosyn. -surgery has been consulted and we will follow. No plans for intervention. -serial hemoglobin and blood transfusion support only if needed. -analgesia. Patient is full resuscitation. His is proxy decision maker. Quality MIPS - Admit I confirm the patient?s Advance Care Plan is present, Code status is documented, Surrogate decision maker is in patient?s record [If Yes, STOP here]: Yes MIPS - Meds 'Current medications' to include all prescriptions, [id number] products, herbals, cannabis/cannabidiol products, and vitamin/mineral/dietary (nutritional) supplements. I have utilized all available resources to obtain, update, or review the patient?s current medications. [If Yes, STOP here]: Yes
[2023-07-11 19:08] LABS: Lactate (Lactic Acid) 1.5 mmol/L (0.7-2.1)
[2023-07-11] MEDS: PIPERACILLIN/TAZO 4.5 GM in SODIUM CHLORIDE 0.9% 100 ML IV (19:23)
[2023-07-11] MEDS: SODIUM CHLORIDE 0.9% 1,000 ML 100 ML IV (19:23)
[2023-07-11] MEDS: BUSPIRONE 5 MG TABLET PO (21:59)
[2023-07-11] MEDS: lamoTRIgine 100 MG TABLET 300 MG PO (21:59)
[2023-07-11 23:46] LABS: Hematocrit 36.7 % (41-53); Hemoglobin 12.7 g/dL (13.5-17.5)
[2023-07-12] MEDS: HYDROMORPHONE 0.5 MG INJ IV ×4 (00:12→08:08)
[2023-07-12] MEDS: ONDANSETRON 4 MG/2 ML INJ IV ×5 (02:11→23:49)
[2023-07-12 04:00] VITALS: BP 105/65; PULSE 62; RESP 16; TEMP 36.8; O2SAT 96
[2023-07-12] MEDS: SODIUM CHLORIDE 0.9% 1,000 ML 100 ML IV ×2 (04:43→16:16)
[2023-07-12 05:22] LABS: Add Manual Diff / Slide Review NO; Basophils Absolute Auto 0 /uL (0-100); Basophils Percent Auto 0.7 % (0-2); Eosinophils Absolute Auto 0 /uL (0-450); Eosinophils Percent Auto 0.2 % (2-4); Hematocrit 34.6 % (41-53); Hemoglobin 12.1 g/dL (13.5-17.5); Lymphocytes Absolute Auto 1200 /uL (1100-4500); Lymphocytes Percent Auto 24.1 % (25-40); Mean Corpuscular Hemoglobin 32.1 PG (26-34); Mean Corpuscular Volume 91.6 fL (80-100); Monocytes Absolute Auto 600 /uL (0-900); Monocytes Percent Auto 11.1 % (3-14); Neutrophils Absolute Auto 3200 /uL (1500-7000); Neutrophils Percent Auto 63.9 % (50-75); Platelet Count 131 X10^3/uL (150-400); Red Blood Cell Count 3.78 X10^6/uL (4.5-5.9); Red Cell Distribution Width 13.2 % (11.6-14.8)
[2023-07-12 05:35] LABS: HEMOLYSIS < 15 (0-50); Potassium 4.2 mmol/L (3.4-5.1)
[2023-07-12 05:36] LABS: BUN Creatinine Ratio 12.7 (6-22); Blood Urea Nitrogen 15 mg/dL (9-20); Calcium 8.3 mg/dL (8.4-10.2); Carbon Dioxide 26 mmol/L (22-32); Chloride 105 mmol/L (98-107); Estimated Glomerular Filt Rate > 60 mL/min (>60); Glucose 97 mg/dL (70-100); Sodium 135 mmol/L (137-145)
--- NOTE | 2023-07-12 07:50 | PM.PN.1 ---
Subjective Subjective Interval history: 42 year old male was admitted on July 11 with acute abdominal pain as well as dark colored bloody stool. CT scan was consistent with a ischemic colitis from the transverse through descending colon. Dr. Aleman of surgery advise symptomatic treatment with IV fluids and antibiotics. The patient is doing well and is having his hemoglobin trended. He has no history of this but does have extensive history of tobacco use. Also has a history of an unclear cardiac problem being evaluated by Dr. Loomis at [facility]. There is a suggestion of right mild hydroureter and hydronephrosis on the CT scan without clear explanation for cause. S: He is still having tenderness in the abdomen but it does feel better than yesterday. No nausea. No rectal bleeding overnight. Discussed with Dr. Aleman of surgery. We will continue IV fluids. We will also check a lipid panel. He does have a history of hyperlipidemia, with a familial pattern per his report. He has been on medications for this. Exam Vital Signs (past 8 hours): - 07/12/23 04:00 Temperature 98.2 F Pulse Rate 62 Respiratory Rate 16 Blood Pressure 105/65 Pulse Oximetry 96 Oxygen Flow Rate 0 Oxygen Delivery Method Room Air Oxygen Flow Rate 0 Narrative Exam Narrative: NAD, alert and oriented. Fluent speech. Lungs are clear, normal rate and effort. Heart is regular, no murmur gallop or rub. Abdomen is soft, non distended. He remains tender in the left greater than the right lower quadrant and some degree in the left upper quadrant. No guarding or rebound. Extremities are free of edema. Objective Imaging CT scan - abdomen: Radiologist's impression: Radiologist's impression: Moderate distal colonic wall thickening can be seen. Please correlate with potential infectious and inflammatory causes of colitis. No findings of perforation or abscess can be seen. When clinically appropriate (following adequate treatment of the patient's current clinical episode) a colonoscopy is recommended for further evaluation for a potential underlying mass (if not already recently done). There is mild right-sided hydroureter and hydronephrosis, without a cause of obstruction seen on these images. Labs 07/12/23 04:48 07/12/23 04:48 Labs: Laboratory Results - last 24 hr 07/11/23 07/11/23 07/11/23 15:16 16:35 23:33 WBC 7.9 RBC 4.46 L Hgb 14.2 12.9 L 12.7 L Hct 40.8 L 36.9 L 36.7 L MCV 91.4 MCH 31.9 MCHC 34.9 RDW 13.1 Plt Count 178 Neut % (Auto) 68.6 Lymph % (Auto) 21.9 L [place] % (Auto) 8.4 Eos % (Auto) 0.1 L Baso % (Auto) 1.0 Neut # (Auto) 5400 Lymph # (Auto) 1700 [place] # (Auto) 700 Eos # (Auto) 0 Baso # (Auto) 100 Sodium 137 Potassium 4.4 Chloride 99 Carbon Dioxide 28 BUN 20 Creatinine 1.18 Estimated GFR > 60 BUN/Creatinine Ratio 16.9 Glucose 105 H Lactate 1.5 Calcium 9.2 Total Bilirubin 0.5 AST 38 ALT 26 Alkaline Phosphatase 85 Total Protein 7.3 Albumin 4.3 Globulin 3.0 Albumin/Globulin Ratio 1.4 Lipase 141 Blood Type O Positive Antibody Screen Negative 07/12/23 04:48 WBC 5.0 RBC 3.78 L Hgb 12.1 L Hct 34.6 L MCV 91.6 MCH 32.1 MCHC 35.0 RDW 13.2 Plt Count 131 L Neut % (Auto) 63.9 Lymph % (Auto) 24.1 L [place] % (Auto) 11.1 Eos % (Auto) 0.2 L Baso % (Auto) 0.7 Neut # (Auto) 3200 Lymph # (Auto) 1200 [place] # (Auto) 600 Eos # (Auto) 0 Baso # (Auto) 0 Sodium 135 L Potassium 4.2 Chloride 105 Carbon Dioxide 26 BUN 15 Creatinine 1.18 Estimated GFR > 60 BUN/Creatinine Ratio 12.7 Glucose 97 Lactate Calcium 8.3 L Total Bilirubin AST ALT Alkaline Phosphatase Total Protein Albumin Globulin Albumin/Globulin Ratio Lipase Blood Type Antibody Screen [facility] Medical History Chest pain Back pain Tremor Bipolar 1 disorder Renal cyst Surgical History History of cholecystectomy Social History marital status: unmarried,living together details: GF number of children: 1 household members: significant other occupational status: employed Previous occupational history: utilities Smoking Status: Current some day smoker Assessment & Plan Assessment & Plan narrative: 1. Rectal bleeding, present on admission and improving. 2. Probable ischemic colitis of the transverse and descending colon, present on admission and active. 3. Mild right hydroureter and hydronephrosis, present on admission and active. 4. Bipolar 1, present on admission and stable. 5. History of recurrent colonic polyps and multiple colonoscopies in the past, present on admission and active. 6. History of congestive heart failure with other details not available, present on admission and stable. Plan: -IV fluids and IV Zosyn. -surgery (Dr. Aleman) has been consulted and will follow. No plans for intervention. -serial hemoglobin and blood transfusion support only if needed. -analgesia. -continue current plan without change. DISPO: home in about 2 days. Patient is full resuscitation. His is proxy decision maker. Time Spent With Patient Time with patient: 30 to 49 minutes with 50% spent counseling/coordinating care Quality VTE Deep Vein Thrombosis/Pulmonary Embolism Present on Admission: No
[2023-07-12 08:00] VITALS: BP 102/65; PULSE 50; RESP 16; TEMP 36.4; O2SAT 99
[2023-07-12] MEDS: BUSPIRONE 5 MG TABLET PO ×2 (08:08→19:50)
--- NOTE | 2023-07-12 08:18 | PC.NURSE ---
pt c/o lower abd pain 12/25- medicated with dilaudid 0.5mg ivp with some immediate relief. abd soft with typanic hyperactive bt's-denies n/v at this.
[2023-07-12] MEDS: HYDROMORPHONE 0.5 MG INJ 1 MG IV (09:03)
--- NOTE | 2023-07-12 09:20 | CM.DANOTE ---
Patient is a 42 yo male who was admitted on 07/11/23 for Abd Pain. Pt has BCBS [facility] for insurance and his PCP is Camilla Clifford. EMR was reviewed. Per MD, pt no longer a smoker and has been getting a workup with Histotechnologist Supervisor at [facility] for possible CHF and has hx of polyps and admitted for ischemic colitis and on IV-Abx and fluids and bowel rest. Per RN, pt having some significant pain management issues still this AM. SW met briefly bedside with pt and Sig Ab Sasha and they confirm that they live in an apt in [place] and both are active and independent with ADLs and works. Pt in obvious discomfort and waiting to see how pt progresses with bowel rest and ongoing Surgeon recommendations. Plan: SW to follow closely for pt's progress and to r/o need for surgical intervention and any further identified discharge planning needs. FAITH Smith Discharge Planning/Care Management CM Discharge Assessment Start: 07/12/23 09:18 Freq: Status: Active Protocol: Document 07/12/23 09:18 BF (Rec: 07/12/23 09:20 BF [id number]) Discharge Planning Assessment Assigned Cloth Edge Singer FAITH Atkinson DPOA/Assigned Designee Name informally Sig Ab Sasha Contact Information [phone] Advance Directives? No Advance Directives on File No History Provided By Patient,Significant Other, Medical Record Has Patient been admitted in last 30 No days? Prior Living Arrangements Apartment/Condo Household Members significant other Type of transporation used prior to Drives own vehicle admit Independent with ADL's Yes Is patient alert and oriented? Yes Caregiver for Another No Barriers to Discharge No Discharge Plan Home Transportation Arrangement Sig Other bedside and can transport Referrals Initiated None needed Additional Comment Pending results with bowel rest Whiteboard Updated in Patient Room with Yes name and ext. # of Cloth Edge Singer Review Status In Process Please Provide Date Initial DC 07/12/23 Assessment Was Performed Next Review Type Continued Stay Review
--- NOTE | 2023-07-12 11:10 | PM.CN ---
History of Present Illness Consult details Date Patient Seen: 07/12/23 Time Patient Seen: 11:10 Chief complaint: abd pain, concerned GI bleed, blood in stool Reason for consult: GI bleeding Requesting provider: Facundo Parkinson Narrative: New onset of bloody stools and abdominal pain. No previous episodes. Generalized abdominal pain with tenderness Left greater than Right. Chronic pain issues. Has had colonoscopies in the past for polyps. History of seisure he contributes to Tramadol, and chest pain with normal cardiac stress test. Lipid panel is near normal. Meds Home Medications and Allergies Home Medications Medication Instructions Recorded Confirmed Type buspirone 5 mg tablet 5 mg PO BID 04/28/23 07/11/23 History lamotrigine 100 mg tablet 300 mg PO DAILY 04/28/23 07/11/23 History (Lamictal) paroxetine HCl 10 mg tablet 10 mg PO DAILY 04/28/23 07/11/23 History tizanidine 2 mg capsule 2 mg PO BID 04/28/23 07/11/23 History varenicline 0.5 mg (11)-1 mg (42) See Rx Instructions PO PER PKG DIR 06/09/23 07/11/23 Rx tablets in a dose pack ([employer] #53 ea Starting Month Box) aspirin 81 mg tablet 81 mg PO DAILY 07/11/23 07/11/23 History primidone 50 mg tablet 50 mg PO DAILY 07/11/23 07/11/23 History Allergies Allergy/AdvReac Type Severity Reaction Status Date / Time tramadol Allergy Verified 07/11/23 18:54 Review of Systems Review of Systems ROS: Yes All systems reviewed with the patient and are negative except as otherwise documented Exam Vital Signs (past 8 hours): - 07/12/23 04:00 07/12/23 08:00 Temperature 98.2 F 97.5 F L Pulse Rate 62 50 L Respiratory Rate 16 16 Blood Pressure 105/65 102/65 Pulse Oximetry 96 99 Oxygen Flow Rate 0 0 Oxygen Delivery Method Room Air Oxygen Flow Rate 0 Const General: cooperative, in distress and ill appearing Nutritional Appearance: average body habitus [facility] Head: normal to inspection, normocephalic and atraumatic Eyes General: appearance normal, both eyes and all related structures Sclera: sclerae normal Neck Neck: trachea midline and No JVD Chest Chest: normal inspection of the chest Resp Effort & Inspection: normal respiratory effort and able to speak in complete sentences Cardio Rate: bradycardic Rhythm: regular rhythm GI Inspection: normal to inspection and non-distended Palpation: soft, No guarding and tender (generalized tenderness left greater than right) Skin General: elasticity normal and turgor normal Neuro General: patient alert, patient awake and patient oriented x3 Cognition: normal cognition Psych Mental Status: mental status grossly normal Affect: animated Judgment: judgment good Objective Labs 07/12/23 04:48 07/12/23 04:48 Labs: Laboratory Results - last 24 hr 07/11/23 07/11/23 07/11/23 15:16 16:35 23:33 WBC 7.9 RBC 4.46 L Hgb 14.2 12.9 L 12.7 L Hct 40.8 L 36.9 L 36.7 L MCV 91.4 MCH 31.9 MCHC 34.9 RDW 13.1 Plt Count 178 Neut % (Auto) 68.6 Lymph % (Auto) 21.9 L [place] % (Auto) 8.4 Eos % (Auto) 0.1 L Baso % (Auto) 1.0 Neut # (Auto) 5400 Lymph # (Auto) 1700 [place] # (Auto) 700 Eos # (Auto) 0 Baso # (Auto) 100 Sodium 137 Potassium 4.4 Chloride 99 Carbon Dioxide 28 BUN 20 Creatinine 1.18 Estimated GFR > 60 BUN/Creatinine Ratio 16.9 Glucose 105 H Lactate 1.5 Calcium 9.2 Total Bilirubin 0.5 AST 38 ALT 26 Alkaline Phosphatase 85 Total Protein 7.3 Albumin 4.3 Globulin 3.0 Albumin/Globulin Ratio 1.4 Lipase 141 Blood Type O Positive Antibody Screen Negative 07/12/23 04:48 WBC 5.0 RBC 3.78 L Hgb 12.1 L Hct 34.6 L MCV 91.6 MCH 32.1 MCHC 35.0 RDW 13.2 Plt Count 131 L Neut % (Auto) 63.9 Lymph % (Auto) 24.1 L [place] % (Auto) 11.1 Eos % (Auto) 0.2 L Baso % (Auto) 0.7 Neut # (Auto) 3200 Lymph # (Auto) 1200 [place] # (Auto) 600 Eos # (Auto) 0 Baso # (Auto) 0 Sodium 135 L Potassium 4.2 Chloride 105 Carbon Dioxide 26 BUN 15 Creatinine 1.18 Estimated GFR > 60 BUN/Creatinine Ratio 12.7 Glucose 97 Lactate Calcium 8.3 L Total Bilirubin AST ALT Alkaline Phosphatase Total Protein Albumin Globulin Albumin/Globulin Ratio Lipase Blood Type Antibody Screen [facility] Medical History Chest pain Back pain Tremor Bipolar 1 disorder Renal cyst Surgical History History of cholecystectomy Social History marital status: unmarried,living together details: GF number of children: 1 household members: significant other occupational status: employed Previous occupational history: [employer] Tobacco & Substance Use Smoking Status: Current some day smoker Assessment & Plan Assessment & Plan narrative: CT scan reveiwed and c/w ischemic colitis. Bloody stools without several anemia requiring transfusion Young age for ischemic colitis, smoking is only contributor found so far. Plan: restart diet. observation for anemia requiring intervention. Pain control.
[2023-07-12 12:00] VITALS: BP 118/73; PULSE 54; RESP 18; TEMP 36.3; O2SAT 97
[2023-07-12] MEDS: CELECOXIB 200 MG CAPSULE PO ×2 (12:34→19:50)
[2023-07-12] MEDS: GABAPENTIN 300 MG CAPSULE PO ×3 (12:34→19:50)
[2023-07-12] MEDS: HYDROCODONE/ACET 5/325 TABLET 1 TAB PO ×2 (12:34→18:23)
[2023-07-12 12:55] LABS: Cholesterol 176 mg/dL (140-199); HDL Cholesterol 45 mg/dL (40-60); LDL Cholesterol Calculated 101 mg/dL (<100); Triglycerides 149 mg/dL (35-150)
[2023-07-12] MEDS: HYDROMORPHONE 1 MG INJ IV ×5 (14:39→23:49)
[2023-07-12 16:00] VITALS: BP 127/81; PULSE 60; RESP 18; TEMP 36.2; O2SAT 98
[2023-07-12 19:44] VITALS: BP 116/70; PULSE 52; RESP 17; TEMP 36.3; O2SAT 98
[2023-07-12] MEDS: lamoTRIgine 100 MG TABLET 300 MG PO (19:51)
[2023-07-12] MEDS: TIZANIDINE 4 MG TABLET 2 MG PO (21:41)
[2023-07-13] VITALS (7 sets, daily range): BP systolic 129–157; BP diastolic 72–85; PULSE 50–69; RESP 16–20; TEMP 35.7–36.6; O2SAT 95–98
[2023-07-13] MEDS: HYDROCODONE/ACET 5/325 TABLET 1 TAB PO ×2 (00:48→06:49)
[2023-07-13] MEDS: HYDROMORPHONE 1 MG INJ IV ×9 (02:26→23:13)
[2023-07-13] MEDS: SODIUM CHLORIDE 0.9% 1,000 ML 100 ML IV ×3 (02:27→23:13)
[2023-07-13] MEDS: ONDANSETRON 4 MG/2 ML INJ IV ×4 (04:31→19:44)
[2023-07-13 04:45] LABS: Add Manual Diff / Slide Review NO; Basophils Absolute Auto 100 /uL (0-100); Basophils Percent Auto 1.1 % (0-2); Eosinophils Absolute Auto 0 /uL (0-450); Eosinophils Percent Auto 0.1 % (2-4); Hematocrit 38.6 % (41-53); Hemoglobin 13.2 g/dL (13.5-17.5); Lymphocytes Absolute Auto 1600 /uL (1100-4500); Mean Corpuscular HGB Conc 34.1 % (30-36); Mean Corpuscular Hemoglobin 31.2 PG (26-34); Mean Corpuscular Volume 91.5 fL (80-100); Monocytes Absolute Auto 600 /uL (0-900); Monocytes Percent Auto 13.2 % (3-14); Neutrophils Absolute Auto 2600 /uL (1500-7000); Neutrophils Percent Auto 53.6 % (50-75); Platelet Count 142 X10^3/uL (150-400); Red Blood Cell Count 4.21 X10^6/uL (4.5-5.9); White Blood Cell Count 4.9 X10^3/uL (4.5-11.0)
[2023-07-13 05:00] LABS: BUN Creatinine Ratio 12.1 (6-22); Blood Urea Nitrogen 16 mg/dL (9-20); Calcium 8.8 mg/dL (8.4-10.2); Carbon Dioxide 29 mmol/L (22-32); Chloride 106 mmol/L (98-107); Estimated Glomerular Filt Rate > 60 mL/min (>60); Glucose 87 mg/dL (70-100); HEMOLYSIS < 15 (0-50); Potassium 4.5 mmol/L (3.4-5.1); Sodium 139 mmol/L (137-145)
--- NOTE | 2023-07-13 06:52 | PC.NURSE ---
Pt continues to have abdominal pain despite being medicated every 2 hours with IV dilaudid. Abdomen is soft but pt states It feels like everything is twisting and that I am having spasms in my abdomen. pt is passing gas, no BM tonight.
[2023-07-13] MEDS: GABAPENTIN 300 MG CAPSULE PO ×3 (08:17→20:41)
[2023-07-13] MEDS: BUSPIRONE 5 MG TABLET PO ×2 (08:17→20:41)
[2023-07-13] MEDS: PARoxetine 20 MG TABLET 10 MG PO (08:17)
[2023-07-13] MEDS: TIZANIDINE 4 MG TABLET 2 MG PO ×2 (08:18→20:40)
[2023-07-13] MEDS: CELECOXIB 200 MG CAPSULE PO ×2 (08:18→20:40)
[2023-07-13] MEDS: PRIMIDONE 50 MG TABLET PO (08:19)
--- NOTE | 2023-07-13 10:27 | PM.PN.1 ---
Subjective Subjective Date Patient Seen: 07/13/23 Time Patient Seen: 10:27 Interval history: Brayden continues to experience severe abdominal pain requiring Dilaudid. He has tolerated some regular diet this morning. He has had 1 bowel movements since being in the hospital but it got flushed. Exam Vital Signs (past 8 hours): - 07/13/23 04:27 07/13/23 08:00 Temperature 96.7 F L 96.3 F L Pulse Rate 69 61 Respiratory Rate 17 20 Blood Pressure 131/81 133/72 Pulse Oximetry 95 98 Oxygen Flow Rate 0 0 Oxygen Delivery Method Room Air Oxygen Flow Rate 0 Narrative Exam Narrative: Tender to palpation in the left upper quadrant and left lower quadrant Objective Labs 07/13/23 04:30 07/13/23 04:30 Labs: Laboratory Results - last 24 hr 07/12/23 07/13/23 04:48 04:30 WBC 4.9 RBC 4.21 L Hgb 13.2 L Hct 38.6 L MCV 91.5 MCH 31.2 MCHC 34.1 RDW 13.0 Plt Count 142 L Neut % (Auto) 53.6 Lymph % (Auto) 32.0 [place] % (Auto) 13.2 Eos % (Auto) 0.1 L Baso % (Auto) 1.1 Neut # (Auto) 2600 Lymph # (Auto) 1600 [place] # (Auto) 600 Eos # (Auto) 0 Baso # (Auto) 100 Sodium 139 Potassium 4.5 Chloride 106 Carbon Dioxide 29 BUN 16 Creatinine 1.32 H Estimated GFR > 60 BUN/Creatinine Ratio 12.1 Glucose 87 Calcium 8.8 Triglycerides 149 Cholesterol 176 LDL Cholesterol, Calc 101 H HDL Cholesterol 45 PFSH Medical History Chest pain Back pain Tremor Bipolar 1 disorder Renal cyst Surgical History History of cholecystectomy Social History marital status: unmarried,living together details: GF number of children: 1 household members: significant other occupational status: employed Previous occupational history: utilities Smoking Status: Current some day smoker Assessment & Plan Assessment and plan (1) Colitis: Status: Acute Plan The colitis reported on CT appears to be quite minimal to me. White count is normal. He has tolerated a regular diet. His only ongoing issue was persistent abdominal pain. We could plan for a colonoscopy on Thursday afternoon. This could be done as an inpatient if he stays in the hospital or as an outpatient if he goes home. If he discharges from the hospital today he should stop at [facility] to get prep instructions. He should be on a clear liquid diet starting now if we are going to proceed with a colonoscopy on Thursday. Quality VTE Deep Vein Thrombosis/Pulmonary Embolism Present on Admission: No
--- NOTE | 2023-07-13 13:45 | CM.DPC ---
DCP Cont: Per Surgeon, pt has been able to tolerate general diet and had one bm while admitted and labs look normal but pt still with significant abd pain requiring Q2 IV dilaudid. Plan is colonoscopy Wed and could either be as an inpatient still in the hospital or could discharge with outpt scope Wed. Plan: SW to follow closely to determine if pt's abd pain can be better managed for discharge home with outpt scope vs remain in the hospital if pt not well managed on po meds. Pt has continued to have supportive Sig Other bedside. China Alvarado MSW
--- NOTE | 2023-07-13 15:13 | P.PN_ITS ---
Subjective Subjective Interval history: 42 M admitted with abdominal pain, has segmental colitis on imaging. He reports his sister has a diagnosis of inflammatory bowel (crohn's). He feels a bit better, tolerating some liquids but not a lot. Exam Vital Signs (past 8 hours): - 07/13/23 08:00 07/13/23 14:12 Temperature 96.3 F L 97.0 F L Pulse Rate 61 95 H Respiratory Rate 20 18 Blood Pressure 133/72 109/76 Pulse Oximetry 98 97 Oxygen Flow Rate 0 0 Oxygen Delivery Method Room Air Oxygen Flow Rate 0 Narrative Exam Narrative: NAD, alert and oriented. Fluent speech. Lungs are clear, normal rate and effort. Heart is regular, no murmur gallop or rub. Abdomen is soft, non distended. He remains tender in the left greater than the right lower quadrant and some degree in the left upper quadrant. No guarding or rebound. Extremities are free of edema. Objective Labs 07/13/23 04:30 07/13/23 04:30 Labs: Laboratory Results - last 24 hr 07/13/23 04:30 WBC 4.9 RBC 4.21 L Hgb 13.2 L Hct 38.6 L MCV 91.5 MCH 31.2 MCHC 34.1 RDW 13.0 Plt Count 142 L Neut % (Auto) 53.6 Lymph % (Auto) 32.0 [place] % (Auto) 13.2 Eos % (Auto) 0.1 L Baso % (Auto) 1.1 Neut # (Auto) 2600 Lymph # (Auto) 1600 [place] # (Auto) 600 Eos # (Auto) 0 Baso # (Auto) 100 Sodium 139 Potassium 4.5 Chloride 106 Carbon Dioxide 29 BUN 16 Creatinine 1.32 H Estimated GFR > 60 BUN/Creatinine Ratio 12.1 Glucose 87 Calcium 8.8 [facility] Medical History Chest pain Back pain Tremor Bipolar 1 disorder Renal cyst Surgical History History of cholecystectomy Social History marital status: unmarried,living together details: GF number of children: 1 household members: significant other occupational status: employed Previous occupational history: utilities Smoking Status: Current some day smoker Assessment & Plan Assessment & Plan narrative: 1. Rectal bleeding, present on admission and improving. 2. Segmental colitis of the transverse and descending colon, present on admission and active. 3. Mild right hydroureter and hydronephrosis, present on admission and active. 4. Bipolar 1, present on admission and stable. 5. History of recurrent colonic polyps and multiple colonoscopies in the past, present on admission and active. 6. Elevated creatinine Plan: -check C. diff, if negative then consider starting steroids with family history of inflammatory bowel disease. Segmental colitis could be ischemic, infectious, or inflammatory in nature. I do not see previous colonoscopy records, but reportedly recommended repeat for polys. -h/h appears stable. -rising Cr to 1.32 today, continue to follow, consider repeat imaging if rising with mild R hydronephrosis on initial imaging. -surgery consulted, plan for colonoscopy on 07/15, can be inpatient or outpatient -pain is still not controlled, no associated with diet intake. tolerating minimal diet. -continues to have frequent dilaudid use. -reviewed outpatient cardiology notes, he has no history of heart failure. He was evaluated for chest pain previously with low risk stress testing at that time. DISPO: home when improved Patient is full resuscitation. His is proxy decision maker. Time Spent With Patient Time with patient: 30 to 49 minutes with 50% spent counseling/coordinating care Quality VTE Deep Vein Thrombosis/Pulmonary Embolism Present on Admission: No
[2023-07-13] MEDS: lamoTRIgine 100 MG TABLET 300 MG PO (20:40)
[2023-07-13] MEDS: SODIUM CHLORIDE 0.9% FLUSH 10 ML IV (20:41)
--- NOTE | 2023-07-13 23:32 | PC.NURSE ---
Addendum entered by Anita Russ R.N. 07/13/23 23:39: Patient also reporting new numbness/tingling in right lateral hip and thigh. Original Note: Patient is alert and oriented. Breath sounds diminished but CTA with RA sat of 98%. HRR but intermittently bradycardic with rate at 48 at time of assessment but telemetry reading was SR. Does endorse some mild dizziness when getting out of bed so discussed importance of sitting on edge of bed before standing up and calling if dizziness not resolved in order to prevent fall; verbalized agreement. Nauseated at time of assessment which resolved after adminishtering Zofran. BT present and is passing flatus but very tender at umbilicus radiating into left lower abdomen; mildly distended. Reports he had a small stool this morning which still had blood in it. Denied any dysuria with urination and is using urinal; urine is pale, light yellow. Independent with mobility so is refusing SCD's. Fall risk score is moderate but appropriate and steady on feet so alarm is not in use at this time.
[2023-07-14] VITALS: BP 133/70; PULSE 53; RESP 18; TEMP 36.3; O2SAT 95
[2023-07-14 04:00] VITALS: BP 137/72; PULSE 54; RESP 16; TEMP 36.2; O2SAT 94
[2023-07-14] MEDS: HYDROMORPHONE 1 MG INJ IV ×6 (04:31→21:51)
[2023-07-14 05:14] LABS: Add Manual Diff / Slide Review NO; Basophils Absolute Auto 100 /uL (0-100); Eosinophils Absolute Auto 0 /uL (0-450); Eosinophils Percent Auto 0.1 % (2-4); Hematocrit 34.3 % (41-53); Hemoglobin 12.2 g/dL (13.5-17.5); Lymphocytes Absolute Auto 1300 /uL (1100-4500); Lymphocytes Percent Auto 24.3 % (25-40); Mean Corpuscular HGB Conc 35.5 % (30-36); Monocytes Absolute Auto 400 /uL (0-900); Monocytes Percent Auto 8.2 % (3-14); Neutrophils Absolute Auto 3600 /uL (1500-7000); Neutrophils Percent Auto 66.4 % (50-75); Platelet Count 127 X10^3/uL (150-400); Red Blood Cell Count 3.82 X10^6/uL (4.5-5.9); White Blood Cell Count 5.4 X10^3/uL (4.5-11.0)
[2023-07-14 05:42] LABS: BUN Creatinine Ratio 8.3 (6-22); Blood Urea Nitrogen 11 mg/dL (9-20); C-Reactive Protein Quant 1.1 mg/dL (<1.0); Calcium 8.4 mg/dL (8.4-10.2); Carbon Dioxide 28 mmol/L (22-32); Chloride 108 mmol/L (98-107); Estimated Glomerular Filt Rate > 60 mL/min (>60); Glucose 89 mg/dL (70-100); HEMOLYSIS < 15 (0-50); Potassium 4.2 mmol/L (3.4-5.1); Sodium 137 mmol/L (137-145)
[2023-07-14 05:50] LABS: Erythrocyte Sedimentation Rate 7 MM/HR (0-15)
[2023-07-14 08:00] VITALS: BP 147/81; PULSE 56; RESP 18; TEMP 36.4; O2SAT 97
[2023-07-14] MEDS: PRIMIDONE 50 MG TABLET PO (08:12)
[2023-07-14] MEDS: GABAPENTIN 300 MG CAPSULE PO ×3 (08:12→20:08)
[2023-07-14] MEDS: HYDROCODONE/ACET 5/325 TABLET 1 TAB PO ×3 (08:13→20:08)
[2023-07-14] MEDS: BUSPIRONE 5 MG TABLET PO ×2 (08:13→20:08)
[2023-07-14] MEDS: TIZANIDINE 4 MG TABLET 2 MG PO ×2 (08:13→20:07)
[2023-07-14] MEDS: PARoxetine 20 MG TABLET 10 MG PO (08:14)
[2023-07-14] MEDS: CELECOXIB 200 MG CAPSULE PO ×2 (08:14→20:08)
[2023-07-14] MEDS: ONDANSETRON 4 MG/2 ML INJ IV ×2 (08:14→15:41)
[2023-07-14] MEDS: SODIUM CHLORIDE 0.9% FLUSH 10 ML IV ×2 (08:14→20:12)
[2023-07-14] MEDS: SODIUM CHLORIDE 0.9% 1,000 ML 100 ML IV (10:02)
--- NOTE | 2023-07-14 10:28 | CM.DPNOTE ---
DCP Note DIRECTOR LABOR STANDARDS reviewed EMR. Per RN, in lots of pain today. Colonoscopy prep this afternoon for colonoscopy tomorrow. Per hospitalist in morning rounds, c diff rule out prior to being able to determine appropriate steroid plan. Per chart review, mostly pain management. Likely no CM needs. Plan: anticipate home with sig other when medically stable. CM team will follow as needed. FAITH Holland
[2023-07-14 12:00] VITALS: BP 143/83; PULSE 53; RESP 18; TEMP 36.3; O2SAT 96
--- NOTE | 2023-07-14 13:36 | PM.PN.1 ---
Subjective Subjective Interval history: 42 M admitted with abdominal pain, has segmental colitis on imaging. He feels a bit improved but still requiring IV medication for breakthrough pain. He is tolerating clears. Plan with surgery is for endoscopy tomorrow. Exam Vital Signs (past 8 hours): - 07/14/23 08:00 07/14/23 12:00 Temperature 97.6 F 97.4 F L Pulse Rate 56 L 53 L Respiratory Rate 18 18 Blood Pressure 147/81 H 143/83 H Pulse Oximetry 97 96 Oxygen Flow Rate 0 0 Oxygen Delivery Method Room Air Oxygen Flow Rate 0 Narrative Exam Narrative: NAD, alert and oriented. Fluent speech. Lungs are clear, normal rate and effort. Heart is regular, no murmur gallop or rub. Abdomen is soft, non distended. He remains tender in the left greater than the right lower quadrant and some degree in the left upper quadrant. No guarding or rebound. Extremities are free of edema. Objective Labs 07/14/23 04:27 07/14/23 04:27 Labs: Laboratory Results - last 24 hr 07/14/23 04:27 WBC 5.4 RBC 3.82 L Hgb 12.2 L Hct 34.3 L MCV 90.0 MCH 32.0 MCHC 35.5 RDW 13.0 Plt Count 127 L Neut % (Auto) 66.4 Lymph % (Auto) 24.3 L [place] % (Auto) 8.2 Eos % (Auto) 0.1 L Baso % (Auto) 1.0 Neut # (Auto) 3600 Lymph # (Auto) 1300 [place] # (Auto) 400 Eos # (Auto) 0 Baso # (Auto) 100 ESR 7 Sodium 137 Potassium 4.2 Chloride 108 H Carbon Dioxide 28 BUN 11 Creatinine 1.32 H Estimated GFR > 60 BUN/Creatinine Ratio 8.3 Glucose 89 Calcium 8.4 C-Reactive Protein 1.1 H [facility] Medical History Chest pain Back pain Tremor Bipolar 1 disorder Renal cyst Surgical History History of cholecystectomy Social History marital status: unmarried,living together details: GF number of children: 1 household members: significant other occupational status: employed Previous occupational history: utilities Smoking Status: Current some day smoker Assessment & Plan Assessment & Plan narrative: 1. Rectal bleeding, present on admission and improving. 2. Segmental colitis of the transverse and descending colon, present on admission and active. 3. Mild right hydroureter and hydronephrosis, present on admission and active. 4. Bipolar 1, present on admission and stable. 5. History of recurrent colonic polyps and multiple colonoscopies in the past, present on admission and active. 6. Elevated creatinine Plan: -check C. diff, if negative then consider starting steroids with family history of inflammatory bowel disease. Segmental colitis could be ischemic, infectious, or inflammatory in nature. I do not see previous colonoscopy records, but reportedly recommended repeat for polyps. -discussed with surgery today, plan for colonoscopy tomorrow, will prep today with bisacodyl and miralax. This will add more information as to the underlying etiology of his colitis. -h/h appears stable. -Cr still 1.32 today, continue to follow, consider repeat imaging if rising with mild R hydronephrosis on initial imaging. -pain is still not controlled, no associated with diet intake. tolerating minimal diet of clears still. -continues to have frequent dilaudid use. -reviewed outpatient cardiology notes, he has no history of heart failure. He was evaluated for chest pain previously with low risk stress testing at that time. DISPO: home when improved Patient is full resuscitation. His is proxy decision maker. Quality VTE Deep Vein Thrombosis/Pulmonary Embolism Present on Admission: No
[2023-07-14] MEDS: PEG3350/SOD SULF,BICARB,CL/KCL 4,000 ML SOLUTION 4000 ML PO (15:03)
[2023-07-14 16:00] VITALS: BP 165/90; PULSE 90; RESP 18; TEMP 36.2; O2SAT 91
[2023-07-14 19:37] LABS: Clostridium Difficile Tox PCR Negative for C. diff (Negative)
[2023-07-14 20:06] VITALS: BP 147/77; PULSE 54; RESP 20; TEMP 36.1; O2SAT 94
[2023-07-14] MEDS: lamoTRIgine 100 MG TABLET 300 MG PO (20:07)
[2023-07-14] MEDS: BISACODYL 5 MG TABLET 20 MG PO (21:51)
[2023-07-15] VITALS (10 sets, daily range): BP systolic 107–159; BP diastolic 65–86; PULSE 51–59; RESP 12–22; TEMP 36.3–37.2; O2SAT 94–100
--- NOTE | 2023-07-15 | PATH_ITS ---
[facility] Accession Number: [id number] No. of containers..02 Tissue . 01 Material submitted: . PART A: colon - RIGHT COLON PART B: colon - LEFT COLON . 01 Diagnosis: A. RIGHT COLON, BIOPSY: Colonic mucosa with no diagnostic abnormality. Negative for active, chronic, and microscopic colitis. Negative for dysplasia and malignancy. . B. LEFT COLON, BIOPSY: Colonic mucosa with no diagnostic abnormality. Negative for active, chronic, and microscopic colitis. Negative for dysplasia and malignancy. . MRV 07/17/2023 1324 Local . 01 Electronically signed: . Kelvin Rogers MD, PhD, Pathologist NPI- [id number] . 01 Gross description: . Part A: RIGHT COLON: Received in formalin is 1 fragment(s) of nice, soft tissue measuring 0.3 x 0.3 x 0.2 cm submitted entirely in 1 cassette(s) Part B: LEFT COLON: Received in formalin is 1 fragment(s) of nice, soft tissue measuring 0.3 x 0.2 x 0.2 cm submitted entirely in 1 cassette(s) /MARY 07/17/2023 0115 Local . 01 Pathologist provided ICD-10: R10.9, K62.5 . 01 CPT . 938158, [id number] Specimen Comment: A courtesy copy of this report has been sent to [phone] Performed at: 01 [facility] [address] [place] [address] [id number] MD Jose Kang MD Phone: [phone]
[2023-07-15] MEDS: ONDANSETRON 4 MG/2 ML INJ IV ×2 (00:48→08:55)
[2023-07-15] MEDS: HYDROMORPHONE 1 MG INJ IV ×3 (00:59→11:18)
[2023-07-15 04:29] LABS: Add Manual Diff / Slide Review NO; Basophils Absolute Auto 0 /uL (0-100); Basophils Percent Auto 0.8 % (0-2); Eosinophils Absolute Auto 0 /uL (0-450); Eosinophils Percent Auto 0.1 % (2-4); Hematocrit 34.3 % (41-53); Hemoglobin 12.2 g/dL (13.5-17.5); Lymphocytes Absolute Auto 1300 /uL (1100-4500); Lymphocytes Percent Auto 23.3 % (25-40); Mean Corpuscular HGB Conc 35.5 % (30-36); Mean Corpuscular Hemoglobin 31.6 PG (26-34); Mean Corpuscular Volume 88.9 fL (80-100); Monocytes Absolute Auto 500 /uL (0-900); Monocytes Percent Auto 9.3 % (3-14); Neutrophils Absolute Auto 3600 /uL (1500-7000); Neutrophils Percent Auto 66.5 % (50-75); Platelet Count 125 X10^3/uL (150-400); Red Blood Cell Count 3.86 X10^6/uL (4.5-5.9); Red Cell Distribution Width 12.8 % (11.6-14.8); White Blood Cell Count 5.5 X10^3/uL (4.5-11.0)
[2023-07-15 04:51] LABS: Alanine Aminotransferase 51 IU/L (<50); Albumin 3.3 g/dL (3.5-5.0); Albumin Globulin Ratio 1.3 (1.0-2.8); Alkaline Phosphatase 63 U/L (38-126); Aspartate Aminotransferase 58 IU/L (17-59); BUN Creatinine Ratio 6.2 (6-22); Bilirubin Total 0.7 mg/dL (0.2-1.3); Blood Urea Nitrogen 8 mg/dL (9-20); Calcium 8.5 mg/dL (8.4-10.2); Carbon Dioxide 29 mmol/L (22-32); Chloride 107 mmol/L (98-107); Estimated Glomerular Filt Rate > 60 mL/min (>60); Globulin 2.6 g/dL (1.7-4.1); Glucose 90 mg/dL (70-100); HEMOLYSIS < 15 (0-50); Magnesium 1.7 mg/dL (1.6-2.3); Sodium 138 mmol/L (137-145); Total Protein 5.9 g/dL (6.3-8.2)
[2023-07-15] MEDS: SODIUM CHLORIDE 0.9% FLUSH 10 ML IV (08:55)
--- NOTE | 2023-07-15 13:52 | PM.PREOP ---
Pre-operative Note COVID-19 COVID-19 status: Not tested Interval Note History & Physical reviewed/Exam performed by Physician: Yes Changes to H&P: No ASA Class (for procedural sedation): II
--- NOTE | 2023-07-15 14:26 | PM.OP.COLON ---
Operative Date/Time/Diagnoses Date of procedure: 07/15/23 Time of procedure: 14:26 Pre-op diagnosis: Abdominal pain and possible melena Post-op diagnosis: same Procedure & Clinicians Study performed: Colonoscopy Same procedure as scheduled: Yes Surgeon: Temo Hopson Procedure Notes Procedure in detail: Surgeon: Temo Hopson MD Anesthesia: Mara Harper CRNA Procedure: The patient was brought to the endoscopy suite, placed in left lateral decubitus position. The patient was connected to monitoring devices. A time-out was performed. Sedation was administered. Once the patient was adequately sedated, a digital rectal exam was performed and was normal. The scope was then inserted and advanced to the cecum where the appendiceal orifice was identified and photographed. The scope was then slowly withdrawn over greater than 6 minutes. The mucosa was thoroughly inspected. No gross abnormalities were seen. Random biopsies were taken from the right and left colon with cold forceps. The scope was retroflexed in the rectum. No other abnormalities were seen. The scope was straightened and removed. The patient was awakened and brought to recovery. Scope withdrawal time: 6 minutes Sedation time: 13 minutes EBL: 5 mL Findings: Grossly normal colon Post-procedure Recommendations: Colonoscopy in 10 years Disposition: PACU
--- NOTE | 2023-07-15 15:23 | PM.DS.1 ---
History of Present Illness History of Present Illness Chief complaint: abd pain, concerned GI bleed, blood in stool Narrative: The patient is a 42-year-old male with history of tobacco use and now does not smoke. He also has a history of possible heart failure which is being evaluated by a art specialist at [facility]. The patient has history of polyps in his had 6 colonoscopies in the past. He presents with acute lower abdominal pain and passing dark-colored blood 3-4 times today. His symptoms all began today and he denies any issues yesterday. He has had no recent diarrhea, nausea, or vomiting. He has no history of GI bleeding. He was seen in the emergency department and a CT scan indicated ischemic colitis of the transverse and descending colon. The patient was discussed with Dr. Aleman, of surgery who recommended symptomatic treatment with IV fluids, antibiotics, and blood if required. The patient has no other symptoms of anemia including dyspnea or chest pain. He does feel somewhat fatigued. His pain is in the left and right lower quadrant and does not radiate. It is episodic. He does note a history of opiate tolerance from previous injuries and long-term use of opiates. He has not currently using long-term opiates. Discharge Providers Provider Date of admission: 07/11/23 18:35 Discharge Date: 07/15/23 Primary care physician: Camilla Clifford MD Discharge provider: Kelvin Damon DO Summary Hospital Course Discharge Diagnosis: 1. Rectal bleeding, present on admission and improving. Resolved while inpatient, Hgb stable and colonoscopy normal. 2. Segmental colitis of the transverse and descending colon, present on admission and active. Seen on CT but no evidence on colonoscopy. 3. Mild right hydroureter and hydronephrosis, present on admission and active. 4. Bipolar 1, present on admission and stable. 5. History of recurrent colonic polyps and multiple colonoscopies in the past, present on admission and active. 6. Elevated creatinine Hospital Course: Admitted for abd pain, and reported bloody stools. CT showed segmental colitis. Started on zosyn. C. diff negative. Had no further hematochezia in the hospital. Underwent colonoscopy with gen surg which was completely normal. Patient's abd pain improved and he was tolerating po. Discharged home to f/up with PCP if still having abd issues. Exam Vital Signs (past 8 hours): - 07/15/23 08:18 07/15/23 09:00 07/15/23 12:00 Temperature 98.9 F 97.6 F Pulse Rate 56 L 54 L Respiratory Rate 20 22 Blood Pressure 120/69 128/74 Pulse Oximetry 96 99 Oxygen Delivery Method Room Air Oxygen Flow Rate 0 0 07/15/23 13:27 07/15/23 14:29 07/15/23 14:35 Temperature 97.6 F 98.4 F Pulse Rate 59 L 56 L 53 L Respiratory Rate 18 14 13 Blood Pressure 159/86 H 122/75 107/73 Pulse Oximetry 96 100 100 Oxygen Delivery Method Room Air Room Air Room Air Oxygen Flow Rate 07/15/23 14:40 Temperature 98.4 F Pulse Rate 52 L Respiratory Rate 12 Blood Pressure 137/79 Pulse Oximetry 100 Oxygen Delivery Method Room Air Oxygen Flow Rate Oxygen Delivery Method Room Air Oxygen Flow Rate 0 Narrative Exam Narrative: NAD, alert and oriented. Fluent speech. Lungs are clear, normal rate and effort. Heart is regular, no murmur gallop or rub. Abdomen is soft, non distended. He remains tender in the left greater than the right lower quadrant and some degree in the left upper quadrant. No guarding or rebound. Extremities are free of edema. Objective Labs 07/15/23 04:11 07/15/23 04:11 Labs: Laboratory Results - last 24 hr 07/13/23 07/15/23 18:19 04:11 WBC 5.5 RBC 3.86 L Hgb 12.2 L Hct 34.3 L MCV 88.9 MCH 31.6 MCHC 35.5 RDW 12.8 Plt Count 125 L Neut % (Auto) 66.5 Lymph % (Auto) 23.3 L [place] % (Auto) 9.3 Eos % (Auto) 0.1 L Baso % (Auto) 0.8 Neut # (Auto) 3600 Lymph # (Auto) 1300 [place] # (Auto) 500 Eos # (Auto) 0 Baso # (Auto) 0 Sodium 138 Potassium 4.0 Chloride 107 Carbon Dioxide 29 BUN 8 L Creatinine 1.30 H Estimated GFR > 60 BUN/Creatinine Ratio 6.2 Glucose 90 Calcium 8.5 Magnesium 1.7 Total Bilirubin 0.7 AST 58 ALT 51 H Alkaline Phosphatase 63 Total Protein 5.9 L Albumin 3.3 L Globulin 2.6 Albumin/Globulin Ratio 1.3 C. difficile Tox (PCR) Negative for c. diff [facility] Medical History Chest pain Back pain Tremor Bipolar 1 disorder Renal cyst Surgical History History of cholecystectomy Social History marital status: unmarried,living together details: GF number of children: 1 household members: significant other occupational status: employed Previous occupational history: utilities Smoking Status: Current some day smoker Discharge Plan Discharge Plan Patient Disposition: Home Provider Discharge Comment: Your colonoscopy showed no evidence of bleeding and was totally normal. No explanation was found for your blood in stool. Discharge orders & Medications Prescriptions: Continued varenicline [Chantix Starting Month Box] 0.5 mg (11)- 1 mg (42) tablets,dose pack See Rx Instructions PO PER PKG DIR Qty: 53 0RF Rx Instructions: PO PER PKG DIR lamotrigine [Lamictal] 100 mg tablet 300 mg PO DAILY Rx Instructions: pt tkes it in the afternoon buspirone 5 mg tablet 5 mg PO BID paroxetine HCl 10 mg tablet 10 mg PO DAILY tizanidine 2 mg capsule 2 mg PO BID Patient Comments: BID aspirin 81 mg Tablet 81 mg PO DAILY primidone 50 mg tablet 50 mg PO DAILY Follow up/Referrals: Camilla Clifford MD [Primary Care Provider] - 07/29/23 10:30 am (Appt:07/28 @ 10:[address] Clifford please arrive 15 min prior to your scheduled appointment time ) Visit Report/Discharge Packet Stand Alone Forms: Patient Portal/API, Stroke Signs & Symptoms, Work/Release Restrictions Discharge Data Primary Care Provider: Camilla Clifford Quality VTE Deep Vein Thrombosis/Pulmonary Embolism Present on Admission: No
--- NOTE | 2023-07-15 15:59 | CM.DPNOTE ---
DCP Note CARDIOLOGY COORDINATOR reviewed EMR. Per provider in morning rounds, c diff test negative. Pt for colonoscopy later today. Per chart review, pt able to dc later this afternoon. CARDIOLOGY COORDINATOR entered room and introduced self and role. Pt accompanied by partner at bedside. Pt eager to dc home, reports no needs. Plan: home today with partner to transport. No identified CM needs CM team will follow as needed. FAITH Holland
--- NOTE | 2023-07-15 16:58 | PC.NURSE ---
Pt discharged home at 1700, ambulated off the floor independently accompanied by significant other and hospital staff. IVs removed, discharge teaching provided including follow up appointments and worsening symptoms. No questions or concerns. All belongings left with patient.
== END 2023-07-15 17:01 | disposition home or self-care (01) | DRG 378 ==
LOC: ED 18:36 → AC 18:37
PROVIDERS: Internal Medicine; Surgery; Admitting Provider Hospitalist; Emergency Provider Emergency Medicine; PCP Family Medicine; Referring Provider Emergency Medicine; Visit Provider Hospitalist
PROC: 0DJD8ZZ Inspection of Lower Intestinal Tract, Via Natural or Artificial Opening Endoscopic (ICD-10-PCS; CPT 45378; principal; 2023-07-15 14:00)
DX: K92.2 Gastrointestinal hemorrhage, unspecified (principal); K50.10 Crohn's disease of large intestine without complications; N13.4 Hydroureter; N13.30 Unspecified hydronephrosis; F31.9 Bipolar disorder, unspecified; D64.9 Anemia, unspecified; Z87.891 Personal history of nicotine dependence
CPT/HCPCS: 36415; 74177; 80048; 80053; 80061; 81003; 83605; 83690; 83735; 85014; 85018; 85025; 85651; 86140; 86850; 86900; 86901; 87040; 87493; 93005; 96374; 96375; 99284; 99285; C9113; J1170; J2405; J2543; J2704; Q9967

== ENCOUNTER 2023-07-17 11:14 | Emergency (ER) | payer BC, MEDICARE, SELFPAY ==
[2023-07-11 19:40] VITALS: BMI 29.7
[2023-07-17] VITALS (9 sets, daily range): BP systolic 137–153; BP diastolic 73–93; PULSE 50–66; RESP 15–23; TEMP 36.3–36.6; O2SAT 94–99; BMI 30.1
--- NOTE | 2023-07-17 11:50 | ED.GIBLEED ---
HPI - GI Bleed General Chief complaint: GI Bleed Stated complaint: blood in stool, abd pain Time Seen by Provider: 07/17/23 11:21 Source: patient Mode of arrival: Ambulatory History of Present Illness HPI Narrative: 42-year-old male with history of anemia, ischemic colitis, bipolar, smoking, convulsions, cardiac arrest, spinal cord stimulator presents with blood in stool. He states in the last day, he developed dark blood in stool and vomiting with small red blood. He is also having predominately left sided abdominal pain, moderate to severe, constant. He denies taking blood thinners. He denies prior history of similar. He did not have these symptoms after his recent colonoscopy. No F/C. No chest or back or flank pain. No shortness of breath. No lightheadedness or syncope. No urinary symptoms. No trauma. Per chart review, patient was seen on July 11 in setting of history of hemorrhoids with abdominal pain and blood in stool. He had CT showing concern for ischemic colitis, with Dr. Aleman consulted. Zosyn was given, with bcx obtained. Dr. Parkinson was hospitalist. Dr. Hopson performed colonoscopy which did not show any obvious abnormalities per notes. Bcx appear to have returned with no growth on my check 07/17/23. Related Data Home Medications Medication Instructions Recorded Confirmed buspirone 5 mg tablet 5 mg PO BID 04/28/23 07/17/23 lamotrigine 100 mg tablet 300 mg PO DAILY 04/28/23 07/17/23 (Lamictal) aspirin 81 mg tablet 81 mg PO DAILY 07/11/23 07/17/23 primidone 50 mg tablet 50 mg PO DAILY 07/11/23 07/17/23 paroxetine HCl 30 mg tablet 30 mg PO DAILY 07/17/23 07/17/23 tizanidine 2 mg tablet 2 mg PO BID 07/17/23 07/17/23 Previous Rx's Medication Instructions Recorded varenicline 0.5 mg (11)-1 mg (42) See Rx Instructions PO PER PKG DIR 06/09/23 tablets in a dose pack (Chantix #53 ea Starting Month Box) Allergies Allergy/AdvReac Type Severity Reaction Status Date / Time tramadol Allergy Verified 07/17/23 11:24 Review of Systems Review of Systems Narrative: Constitutional: no fever, no chills Eyes: no visual disturbance, no discharge Ears, Nose, Mouth, Throat: no rhinorrhea, no sore throat Cardiovascular: no chest pain, no palpitations Respiratory: no cough, no shortness of breath Gastrointestinal: + abdominal pain, + vomiting, no diarrhea Genitourinary: no dysuria, no hematuria Musculoskeletal: no back pain, no neck stiffness Skin: no rash, no wound Neurological: no focal weakness, no focal numbness Patient History Medical History Chest pain Back pain Tremor Bipolar 1 disorder Renal cyst Surgical History History of cholecystectomy Social History marital status: unmarried,living together details: GF number of children: 1 household members: significant other occupational status: employed Previous occupational history: [employer] Smoking Status: Current some day smoker Smoking Status: Current some day smoker tobacco type: cigarettes alcohol intake frequency: 0-2 drinks per day Alcohol type: beer Substance Use Type: does not use Exam Narrative Exam Narrative: Const: Uncomfortable appearing, non toxic appearing; anxious, remains conversant, pleasant Eyes: PERRLA, EOMI ENT: mucous membranes moist Neck: supple, non-tender Resp: no respiratory distress, clear to auscultation bilaterally Card: regular rate and rhythm, no murmurs Abd: diffusely tender without focality, no rigidity or rebound or guarding Back: no T or L spine tenderness, no CVA tenderness bilaterally Extrem: no deformities, no swelling bilateral lower extremities, 2+ distal pulses all extremities Neuro: ANOx4, infection preventionist grossly intact, grossly intact sensation and strength all extremities Skin: no rash, warm and dry Initial Vital Signs Initial Vital Signs: Vital Signs Temperature 97.4 F L 07/17/23 11:16 Pulse Rate 66 07/17/23 11:16 Respiratory Rate 15 07/17/23 11:16 Blood Pressure 153/92 H 07/17/23 11:16 Pulse Oximetry 99 07/17/23 11:16 Oxygen Delivery Method Room Air 07/17/23 11:16 Course Course Course Narrative: This presentation is concerning for recurring ischemic colitis or residual symptoms from this previous recent presentation, and the patient was currently afebrile, well perfused but with diffuse tenderness and pain as above. I am giving Dilaudid, Zofran, fluids, Zosyn, pantoprazole, while obtaining labs, urinalysis, CT as above. I will closely reassess. CBC reassuring, no leukocytosis or anemia or thrombocytopenia. Lactate reassuring, within normal limits. INR within normal limits. PTT mildly elevated. Chemistry grossly reassuring, creatinine improved from prior, no LFT elevation. Radiology review of imaging below, which I agree with on my independent review: FINDINGS: Image quality: Diagnostic. Lower Chest: No significant findings. ABDOMEN: Liver: No solid mass. Gallbladder: Surgically absent Biliary ducts: No biliary dilation. Pancreas: No ductal dilation. Spleen: Size is within normal limits. Adrenal Glands: No adrenal nodules. Kidneys and Ureters: No hydronephrosis. No solid mass. No complex renal cystic lesion which requires follow up. Mild prominence of the right collecting system and ureter on the previous study has resolved. Stomach and Bowel: Mild diffuse colonic wall thickening extending from the proximal descending colon through the rectum. Findings are not significantly changed. No significant associated inflammatory change in the adjacent fat. Peritoneum: No abnormal intraperitoneal fluid. No free air. Ventral Wall: No significant ventral hernia. Abdominal Nodes: No retroperitoneal or mesenteric adenopathy by size criteria. Vessels: Aorta and inferior vena cava are normal in size. PELVIS: Pelvic Organs: Unremarkable. Bladder: No bladder wall thickening, accounting for underdistention. Pelvic Nodes: No enlarged lymph nodes. Miscellaneous: No inguinal hernias are seen. Dorsal column stimulator period Bones: No aggressive osseous abnormality. IMPRESSION: 1. Findings suggest mild distal colitis, without significant progression. Dictated by: Giancarlo Gill M.D. on 07/17/2023 at 12:[address] Aleman on phone at 1:30 p.m., reviewing case and workup. She does not feel any additional testing needed in the ER, with discharge with outpatient GI follow-up reasonable. No other treatment recommendations currently. Recent colonoscopy or use strongly against ischemic colitis or IBD. Infectious colitis possible, though currently overall appears to be a mild case. Stool assessment: with RN as digital composer, I performed rectal exam which shows small brown stool, NO melena currently. Patient feeling very well, was substantially improved abdominal exam, tolerating p.o., no new symptoms. At this juncture, I suspect infectious colitis is most likely; given his stability and reports bleeding at home, I will avoid further antibiotics for now, however close follow-up will be very important for him. He fully understands my assessment, recommendations, importance of outpatient follow up closely, return precautions. Prescribing short course of Dilaudid, Narcan, Zofran for home use, with patient understanding carefully as this. Given work note. My staff has informed me patient needs to follow up with primary care for GI referral at this ER, which I communicated to the patient. Repeat exam and vital signs reassuring. Questions answered. Plan reviewed. Patient discharged in stable condition. Orders Ordered: ED Orders 07/17/23 12:56 Blood Culture Stat 07/17/23 13:32 Urinalysis and Microscopic Stat Discontinued Medications Hydromorphone HCl (Hydromorphone 1 Mg Inj) 1 mg IV NOW ONE Stop: 07/17/23 11:59 Last Admin: 07/17/23 12:05 Dose: 1 mg Documented By: FADUMO Piperacillin Sod/Tazobactam (Sod 4.5 gm/ Sodium Chloride) 100 mls @ 200 mls/hr IV NOW ONE Stop: 07/17/23 12:07 Last Infusion: 07/17/23 13:30 Dose: Infused Documented By: Admin: 07/17/23 12:59 Dose: 200 mls/hr Documented By: FADUMO Ondansetron HCl (Ondansetron 4 Mg/2 Ml Inj) 4 mg IV NOW PRN PRN Reason: Nausea And Vomiting Last Admin: 07/17/23 11:55 Dose: 4 mg Documented By: FADUMO Pantoprazole Sodium (Pantoprazole 40 Mg Vial) 80 mg IV NOW ONE Stop: 07/17/23 11:25 Last Admin: 07/17/23 11:55 Dose: 80 mg Documented By: CTS Vital Signs Vital signs: Vital Signs - 8 hr 07/17/23 14:31 Temperature 97.9 F Pulse Rate 51 L Respiratory Rate 18 Blood Pressure 153/73 H Pulse Oximetry 98 Oxygen Delivery Method Room Air MDM - GI Bleed Lab Data 07/17/23 11:48 07/17/23 11:48 Labs: Lab Results 07/17/23 07/17/23 Range/Units 11:48 13:32 WBC 7.6 (4.5-11.0) X10^3/uL RBC 4.55 (4.5-5.9) X10^6/uL Hgb 14.2 (13.5-17.5) g/dL Hct 40.0 L (41-53) % MCV 88.0 (80-100) fL MCH 31.3 (26-34) PG MCHC 35.6 (30-36) % RDW 13.1 (11.6-14.8) % Plt Count 172 (150-400) X10^3/uL Neut % (Auto) 77.1 H (50-75) % Lymph % (Auto) 15.6 L (25-40) % [place] % (Auto) 6.2 (3-14) % Eos % (Auto) 0.0 L (2-4) % Baso % (Auto) 1.1 (0-2) % Neut # (Auto) 5900 (8132-3028) /uL Lymph # (Auto) 1200 (1846-2095) /uL [place] # (Auto) 500 (0-900) /uL Eos # (Auto) 0 (0-450) /uL Baso # (Auto) 100 (0-100) /uL PT 11.5 (9.4-12.5) SECONDS INR 1.0 (0.9-1.3) APTT 38 H (25.1-36.5) SECONDS Sodium 139 (137-145) mmol/L Potassium 4.0 (3.4-5.1) mmol/L Chloride 108 H (98-107) mmol/L Carbon Dioxide 25 (22-32) mmol/L BUN 16 (9-20) mg/dL Creatinine 1.12 (0.66-1.25) mg/dL Estimated GFR > 60 (>60) mL/min BUN/Creatinine Ratio 14.3 (6-22) Glucose 86 (70-100) mg/dL Lactate 0.9 (0.7-2.1) mmol/L Calcium 9.6 (8.4-10.2) mg/dL Total Bilirubin 1.0 (0.2-1.3) mg/dL AST 53 (17-59) IU/L ALT 44 (<50) IU/L Alkaline Phosphatase 73 (38-126) U/L Total Protein 7.9 (6.3-8.2) g/dL Albumin 4.5 (3.5-5.0) g/dL Globulin 3.4 (1.7-4.1) g/dL Albumin/Globulin Ratio 1.3 (1.0-2.8) Urine Color Yellow Urine Appearance Clear Urine pH 6.5 (4.5-8.0) Ur Specific [place] <=1.005 (1.000-1.035) Urine Protein Negative (Negative) Urine Glucose (UA) Negative (Negative) g/dL Urine Ketones Negative (NEGATIVE) Urine Occult Blood Negative (Negative) Urine Nitrate Negative (Negative) Urine Bilirubin Negative (NEGATIVE) Urine Urobilinogen 0.2 (0.2) E.U./dL Ur Leukocyte Esterase Negative (NEGATIVE) Urine RBC None seen (0-5/HPF) Urine WBC None seen (0-5/HPF) Ur Squamous Epith Cells None seen (0-5/HPF) Urine Bacteria None seen (None) Ur Culture Indicated? Cult not indicated Vol Urine Centrifuged 10ml (spun) Blood Type O Positive Antibody Screen Negative Discharge Plan Departure Patient Disposition: Home Clinical Impression: Abdominal pain Instructions: DI for Abdominal Pain-Adult Activity Restrictions/Additional Instructions: It was a pleasure taking care of you today. It is important to fully read and understand the below. Please ask us if you have any questions. We think the most likely cause of your pain is colitis. I spoke with your previous surgery team again, and they do not recommend any additional treatment currently. However, I think it is reasonable to follow up with Gastroenterology as discussed. Please discuss this with your primary doctor. I am prescribing a short course of pain medications help with this. Please see your primary doctor within 3 days to be reassessed and return if you worsen or new symptoms. You have been given or prescribed any narcotics or other sedating medications. Please take only what you must, DO NOT combine with alcohol or other sedating medications, DO NOT drive while taking, do not allow anyone else to take these medications, and please carefully dispose of what you do not use. No tests or assessments are perfect, and your condition could loom overhauler time. If your symptoms change or worsen, it is very important you immediately seek medical care. If you have any new or worsening pain, lightheadedness or passing out, worsening bleeding, tar like stool with black, shortness of breath, fever, vomiting, confusion, numbness, weakness, or anything else that concerns you, please immediately seek medical care. If you have been prescribed any medications: please read the drug package inserts on how to properly use the medication and any potential side effects. If you had labs (blood tests) or imaging (CT scan or x-rays) done during your visit: please follow up on the results of these with your primary care doctor, as discussed. In addition, please know the results we received today may be preliminary. Our usual practice is to follow up on tests within a few days of a patient's discharge from the Emergency Department and notify you of any changes. These may lead to changes to your treatment plan. However, the best way to obtain and interpret these test results is through your Primary Care Provider. If you need to update your contact information, please stop by the front tender and alert the Registration personnel before you leave the Emergency Department. Thank you for the opportunity to participate in your healthcare. We are always here and happy to see you in the future. --- PLEASE TAKE THE ATTACHED IMAGING TO YOUR DOCTORS: FINDINGS: Image quality: Diagnostic. Lower Chest: No significant findings. ABDOMEN: Liver: No solid mass. Gallbladder: Surgically absent Biliary ducts: No biliary dilation. Pancreas: No ductal dilation. Spleen: Size is within normal limits. Adrenal Glands: No adrenal nodules. Kidneys and Ureters: No hydronephrosis. No solid mass. No complex renal cystic lesion which requires follow up. Mild prominence of the right collecting system and ureter on the previous study has resolved. Stomach and Bowel: Mild diffuse colonic wall thickening extending from the proximal descending colon through the rectum. Findings are not significantly changed. No significant associated inflammatory change in the adjacent fat. Peritoneum: No abnormal intraperitoneal fluid. No free air. Ventral Wall: No significant ventral hernia. Abdominal Nodes: No retroperitoneal or mesenteric adenopathy by size criteria. Vessels: Aorta and inferior vena cava are normal in size. PELVIS: Pelvic Organs: Unremarkable. Bladder: No bladder wall thickening, accounting for underdistention. Pelvic Nodes: No enlarged lymph nodes. Miscellaneous: No inguinal hernias are seen. Dorsal column stimulator period Bones: No aggressive osseous abnormality. IMPRESSION: 1. Findings suggest mild distal colitis, without significant progression. Dictated by: Giancarlo Gill M.D. on 07/17/2023 at 12:57 Prescriptions: No Action varenicline [Chantix Starting Month Box] 0.5 mg (11)- 1 mg (42) tablets,dose pack See Rx Instructions PO PER PKG DIR Qty: 53 0RF Rx Instructions: PO PER PKG DIR paroxetine HCl 30 mg tablet 30 mg PO DAILY tizanidine 2 mg tablet 2 mg PO BID lamotrigine [Lamictal] 100 mg tablet 300 mg PO DAILY Rx Instructions: pt tkes it in the afternoon buspirone 5 mg tablet 5 mg PO BID aspirin 81 mg Tablet 81 mg PO DAILY primidone 50 mg tablet 50 mg PO DAILY Referrals: Camilla Clifford MD [Primary Care Provider] - Stand Alone Forms: Patient Portal/API, Work Release Note
[2023-07-17] MEDS: ONDANSETRON 4 MG/2 ML INJ IV (11:55)
[2023-07-17] MEDS: PANTOPRAZOLE 40 MG VIAL 80 MG IV (11:55)
--- NOTE | 2023-07-17 11:58 | DI.CT.S_ITS ---
PROCEDURE: CT ABDOMEN PELVIS W CON INDICATIONS: abd pain, blood, recent colonoscopy, h/o ischemic colitis TECHNIQUE: After the administration of intravenous contrast, axial sections acquired from the lung bases to the pubic symphysis. Coronal and sagittal reformats were performed. For radiation dose reduction, the following was used: automated exposure control, adjustment of mA and/or kV according to patient size. COMPARISON: Merged With [facility], CT, CT ABDOMEN PELVIS W CON, 07/11/2023, 16:35. FINDINGS: Image quality: Diagnostic. Lower Chest: No significant findings. ABDOMEN: Liver: No solid mass. Gallbladder: Surgically absent Biliary ducts: No biliary dilation. Pancreas: No ductal dilation. Spleen: Size is within normal limits. Adrenal Glands: No adrenal nodules. Kidneys and Ureters: No hydronephrosis. No solid mass. No complex renal cystic lesion which requires follow up. Mild prominence of the right collecting system and ureter on the previous study has resolved. Stomach and Bowel: Mild diffuse colonic wall thickening extending from the proximal descending colon through the rectum. Findings are not significantly changed. No significant associated inflammatory change in the adjacent fat. Peritoneum: No abnormal intraperitoneal fluid. No free air. Ventral Wall: No significant ventral hernia. Abdominal Nodes: No retroperitoneal or mesenteric adenopathy by size criteria. Vessels: Aorta and inferior vena cava are normal in size. PELVIS: Pelvic Organs: Unremarkable. Bladder: No bladder wall thickening, accounting for underdistention. Pelvic Nodes: No enlarged lymph nodes. Miscellaneous: No inguinal hernias are seen. Dorsal column stimulator period Bones: No aggressive osseous abnormality. IMPRESSION: 1. Findings suggest mild distal colitis, without significant progression. Dictated by: Giancarlo Gill M.D. on 07/17/2023 at 12:57 Approved by: Giancarlo Gill M.D. on 07/17/2023 at 13:07
[2023-07-17] MEDS: HYDROMORPHONE 1 MG INJ IV (12:05)
[2023-07-17 12:06] LABS: Add Manual Diff / Slide Review NO; Basophils Absolute Auto 100 /uL (0-100); Basophils Percent Auto 1.1 % (0-2); Eosinophils Absolute Auto 0 /uL (0-450); Hemoglobin 14.2 g/dL (13.5-17.5); Lymphocytes Absolute Auto 1200 /uL (1100-4500); Lymphocytes Percent Auto 15.6 % (25-40); Mean Corpuscular HGB Conc 35.6 % (30-36); Mean Corpuscular Hemoglobin 31.3 PG (26-34); Monocytes Absolute Auto 500 /uL (0-900); Monocytes Percent Auto 6.2 % (3-14); Neutrophils Absolute Auto 5900 /uL (1500-7000); Neutrophils Percent Auto 77.1 % (50-75); Platelet Count 172 X10^3/uL (150-400); Red Blood Cell Count 4.55 X10^6/uL (4.5-5.9); Red Cell Distribution Width 13.1 % (11.6-14.8); White Blood Cell Count 7.6 X10^3/uL (4.5-11.0)
[2023-07-17 12:11] LABS: Prothrombin Time 11.5 SECONDS (9.4-12.5)
[2023-07-17 12:13] LABS: PTT Partial Thromboplastin Tim 38 SECONDS (25.1-36.5)
[2023-07-17 12:14] LABS: Alanine Aminotransferase 44 IU/L (<50); Albumin 4.5 g/dL (3.5-5.0); Albumin Globulin Ratio 1.3 (1.0-2.8); Alkaline Phosphatase 73 U/L (38-126); Aspartate Aminotransferase 53 IU/L (17-59); BUN Creatinine Ratio 14.3 (6-22); Blood Urea Nitrogen 16 mg/dL (9-20); Calcium 9.6 mg/dL (8.4-10.2); Carbon Dioxide 25 mmol/L (22-32); Chloride 108 mmol/L (98-107); Estimated Glomerular Filt Rate > 60 mL/min (>60); Globulin 3.4 g/dL (1.7-4.1); Glucose 86 mg/dL (70-100); HEMOLYSIS 47 (0-50); Sodium 139 mmol/L (137-145); Total Protein 7.9 g/dL (6.3-8.2)
[2023-07-17 12:19] LABS: Lactate (Lactic Acid) 0.9 mmol/L (0.7-2.1)
[2023-07-17] MEDS: PIPERACILLIN/TAZO 4.5 GM in SODIUM CHLORIDE 0.9% 100 ML IV (12:59)
[2023-07-17 13:50] LABS: Appearance Urine UA CLEAR; Bilirubin Urine UA NEGATIVE (NEGATIVE); Color Urine UA YELLOW; Glucose Urine UA NEGATIVE (Negative); Ketones Urine UA NEGATIVE (NEGATIVE); Leukocyte Esterase Urine UA NEGATIVE (NEGATIVE); Nitrite Urine UA NEGATIVE (Negative); Occult Blood Urine UA NEGATIVE (Negative); Protein Urine UA NEGATIVE (Negative); Specific Gravity Urine UA <=1.005 (1.000-1.035); Urobilinogen Urine UA 0.2 E.U./dL (0.2); pH Urine UA 6.5 (4.5-8.0)
[2023-07-17 14:26] LABS: Urine Volume 10mL (spun)
[2023-07-17 14:27] LABS: Bacteria Urine None Seen; Culture Indicated Urine Cult Not Indicated; RBC Urine None Seen (0-5/HPF); Squamous Epithelial Cell Urine None Seen (0-5/HPF); WBC Urine None Seen (0-5/HPF)
== END 2023-07-17 14:32 | disposition home or self-care (01) ==
PROVIDERS: Emergency Provider Emergency Medicine; PCP Family Medicine
DX: R10.9 Unspecified abdominal pain (principal)
CPT/HCPCS: 36415; 74177; 80053; 81001; 83605; 85025; 85610; 85730; 86850; 86900; 86901; 87040; 96365; 96375; 99284; C9113; J1170; J2405; J2543; Q9967

== ENCOUNTER → 2023-08-05 09:13 | Outpatient (CLI) | payer BC, OTHER, SELFPAY ==
[2023-07-11 19:40] VITALS: BMI 29.7
--- NOTE | 2023-08-05 | DI.ECHO.S_ITS ---
[place] [facility]---------+ [facility] +---------+ : : [address] : : : : [id number] : : : : Phone: [phone] Echocardiogram Report + + :Name: YANELI ELIZALDE Study Date: 08/05/2023 Height: 68 in : :[facility] ReadingLocation: Weight: 196 lb : : Gender: Male BSA: 2.0 m2 : :: 1980 Age: 42 yrs BP: 124/84 mmHg: :Reason For Study: CHEST PAIN : :Ordering Physician: GUNJAN, : :YANNICK Performed By: Claudia Ochoa : :Referring: YANNICK HOLLINS : + + Interpretation Summary Normal sinus rhythm. Normal LV size, wall thickness, wall motion and LV systolic function. EF is 55-60%. Normal chamber sizes. No valvular abnormalities. No prior study available for comparison. Procedure: A two-dimensional transthoracic echocardiogram with color flow and Doppler was performed. The study quality was technically adequate. There is no prior echocardiogram noted for this patient. The patient was in sinus rhythm with heart rates between 55-71 bpm during the exam. Left Ventricle: The left ventricle is normal in size and wall thickness. The ejection fraction is estimated to be 55-60%. Right Ventricle: The right ventricle is borderline dilated. The right ventricular systolic function is normal. Atria: The left atrial size is normal. Right atrial size is normal. There is no Doppler evidence for an interatrial shunt. Mitral Valve: The mitral valve is normal in structure and function. There is mild mitral regurgitation. Aortic Valve: The aortic valve is trileaflet. The aortic valve opens well. There is no aortic valve stenosis. No aortic regurgitation is present. Tricuspid Valve: The tricuspid valve is normal in structure and function. There is mild tricuspid regurgitation. Pulmonic Valve: The pulmonic valve leaflets are thin and pliable; valve motion is normal. There is mild pulmonic regurgitation. Great Vessels: The aortic root is normal size. The dimensions of the ascending aorta are normal. The IVC is of normal diameter and collapses greater than 50% with a sniff. This suggests a low right atrial pressure of 3 mm Hg. Pericardium/ Pleura There is no pericardial effusion. There is no pleural effusion. MMode/2D Measurements & Calculations LVIDd: 4.9 cm LVOT diam: 2.1 cm LVIDs: 3.3 cm Ao root diam: 3.5 cm FS: 32.4 % asc Aorta Diam: 3.1 cm IVSd: 0.89 cm Ao Arch Diam (Prox Trans): 2.8 cm LVPWd: 0.72 cm LV greenberg. diameter/BSA (cm/m^2): 2.4 LV sys. diameter/BSA (cm/m^2): 1.6 LA A2 area: 20.6 cm2 RA long axis: 4.9 cm LA A4 area: 17.0 cm2 RA area: 18.6 cm2 LA length (vol): 5.3 cm RA vol: 59.3 ml LA vol: 56.4 ml RA : 29.2 ml/m2 LA vol index: 27.8 ml/m2 IVC diam: 1.4 cm RVD1 (basal): 4.1 cm TAPSE: 2.5 cm Doppler Measurements & Calculations Ao V2 max: 109.7 cm/sec LVOT Max Shan: 97.7 cm/sec Ao V2 mean: 81.2 cm/sec LV V1 max P.8 mmHg Ao max P.8 mmHg LV V1 VTI: 20.6 cm Ao mean P.9 mmHg RADHA(I,D): 2.7 cm2 Ao V2 VTI: 26.6 cm RADHA(V,D): 3.1 cm2 sev ratio: 0.78 RADHA indexed to BSA (cm^2/m^2): 1.3 MV E max shan: 79.4 cm/sec PA V2 max: 97.6 cm/sec MV A max shan: 41.5 cm/sec PA V2 mean: 65.8 cm/sec MV E/A: 1.9 PA mean P.9 mmHg Med Peak E' Shan: 12.1 cm/sec PA pr(Accel): 19.1 mmHg E/E' med: 6.6 Lat Peak E' Shan: 13.8 cm/sec E/E' lat: 5.8 E/e' average: 6.2 MV dec time: 0.21 sec SV(LVOT): 72.4 ml Electronically signed by: Caroline Valerio M.D. on Reading Physician:08/12/2023 06:16 AM
== END ==
LOC: ECHO 09:14
PROVIDERS: PCP Family Medicine; Referring Provider Internal Medicine; Visit Provider Internal Medicine
DX: R07.9 Chest pain, unspecified (principal); I08.1 Rheumatic disorders of both mitral and tricuspid valves
CPT/HCPCS: 93306

== ENCOUNTER 2024-01-07 17:42 | Emergency (ER) | payer OTHER, SELFPAY ==
[2023-07-11 19:40] VITALS: BMI 29.7
[2024-01-07 17:52] VITALS: BP 113/70; PULSE 71; RESP 16; TEMP 36.4; O2SAT 97; BMI 28.1
--- NOTE | 2024-01-07 18:02 | ED_ITS ---
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 Needle was confirmed to be a blunt needle with no risk any communicable diseases. Patient was not reporting any significant pain to the finger and has a very small needlestick injury to the finger. No erythema spreading from the wound and no discharge. Related Data Home Medications Medication Instructions Recorded Confirmed buspirone 5 mg tablet 5 mg PO BID 04/28/23 07/17/23 lamotrigine 100 mg tablet 300 mg PO DAILY 04/28/23 07/17/23 (Lamictal) aspirin 81 mg tablet 81 mg PO DAILY 07/11/23 07/17/23 primidone 50 mg tablet 50 mg PO DAILY 07/11/23 07/17/23 paroxetine HCl 30 mg tablet 30 mg PO DAILY 07/17/23 07/17/23 tizanidine 2 mg tablet 2 mg PO BID 07/17/23 07/17/23 Previous Rx's Medication Instructions Recorded varenicline 0.5 mg (11)-1 mg (42) See Rx Instructions PO PER PKG DIR 06/09/23 tablets in a dose pack ([employer] #53 ea Starting Month Box) Allergies Allergy/AdvReac Type Severity Reaction Status Date / Time tramadol Allergy Verified 01/07/24 18:00 Review of Systems <Vince Rios PA-C - Last Filed: 01/07/24 18:25> Review of Systems Narrative: GENERAL: Denies chills, fatigue, malaise, fever, sweats. HEENT: Denies sinus pain, ear pain, sore throat, difficulty swallowing, dizziness. RESPIRATORY: Denies dyspnea, cough, wheezing, hemoptysis, sputum. CARDIOVASCULAR: Denies chest pain, palpitations, orthopnea, edema, GASTROINTESTINAL: Denies nausea, vomiting, abdominal pain, diarrhea, constipation, melena. : Denies dysuria, frequency, incontinence, hematuria, urinary retention. MUSCULOSKELETAL: denies weakness, joint pain, or bony pain SKIN: Needlestick injury to the left 2nd digit NEUROLOGIC: Denies weakness, headache, numbness, change in speech, confusion, seizures, incoordination. PSYCHIATRIC: No concerning psychosocial issues. 12 point review of systems is negative except for those stated above Patient History <Vince Rios PA-C - Last Filed: 01/07/24 18:25> Medical History Chest pain Back pain Tremor Bipolar 1 disorder Renal cyst Surgical History History of cholecystectomy Social History marital status: unmarried,living together details: GF number of children: 1 household members: significant other occupational status: employed Previous occupational history: [employer] Smoking Status: Current every day smoker Smoking Status: Current every day smoker tobacco type: cigarettes alcohol intake frequency: 0-2 drinks per day Alcohol type: beer Substance Use Type: does not use Exam <Vince Rios PA-C - Last Filed: 01/07/24 18:25> Narrative Exam Narrative: GENERAL: Well-developed patient, in mild distress. HEAD: Atraumatic. Normocephalic. EYES: Pupils equal round and reactive. Extraocular motions intact. No scleral icterus. No injection or drainage. ENT: Nose without bleeding, purulent drainage. Throat without erythema, tonsillar hypertrophy or exudate. Airway patent. NECK: Trachea midline. Non tender EXTREMITIES: No edema or joint tenderness. NEURO: AOx3. SKIN: Very small needlestick injury to the lateral aspect of the left 2nd digit. No bleeding, no erythema coming from the wound, no purulent drainage, no pain with flexion at the DIP joint Initial Vital Signs Initial Vital Signs: Vital Signs Temperature 97.6 F 01/07/24 17:52 Pulse Rate 71 01/07/24 17:52 Respiratory Rate 16 01/07/24 17:52 Blood Pressure 113/70 01/07/24 17:52 Pulse Oximetry 97 01/07/24 17:52 Oxygen Delivery Method Room Air 01/07/24 17:52 <Juan Flores DO - Last Filed: 01/07/24 18:34> Initial Vital Signs Initial Vital Signs: Vital Signs Temperature 97.6 F 01/07/24 17:52 Pulse Rate 71 01/07/24 17:52 Respiratory Rate 16 01/07/24 17:52 Blood Pressure 113/70 01/07/24 17:52 Pulse Oximetry 97 01/07/24 17:52 Oxygen Delivery Method Room Air 01/07/24 17:52 Course <Vince Rios PA-C - Last Filed: 01/07/24 18:25> Vital Signs Vital signs: Vital Signs - 8 hr 01/07/24 17:52 Temperature 97.6 F Pulse Rate 71 Respiratory Rate 16 Blood Pressure 113/70 Pulse Oximetry 97 Oxygen Delivery Method Room Air <Juan Flores DO - Last Filed: 01/07/24 18:34> Vital Signs Vital signs: Vital Signs - 8 hr 01/07/24 17:52 Temperature 97.6 F Pulse Rate 71 Respiratory Rate 16 Blood Pressure 113/70 Pulse Oximetry 97 Oxygen Delivery Method Room Air Medical Decision Making <Vince Rios PA-C - Last Filed: 01/07/24 18:25> MDM Narrative Medical decision making narrative: ED course: This is a 43-year-old male presents emergency department due to needlestick injury. Needle was confirmed to be a blunt needle that had not been in contact with any other patient is and no risk for any communicable diseases. We will not test for any communicable diseases. No significant injury to the finger. Wound was cleaned with iodine and patient will be discharged. CC: Needlestick injury Complicating co-morbidities: None Data collected from: Previous notes Medical records reviewed: None Differential considered, but not limited to: Needlestick injury, tendon injury, infection, fracture, retained foreign body Exam documented above, pertinent findings include: No evidence of any foreign bodies or infection on exam Lab Test results independently reviewed as above. Pertinent findings: [ ] Imaging studies independently reviewed: [ ] Scores Used: None MIPS Elements: None Consultations: None Treatments: Cleaned with iodine Re-evaluations: None Discussion: Discussed plan with the patient was comfortable with the plan Diagnosis: Needlestick injury Disposition: see below, along with detailed discharge instructions that have been reviewed with patient as well as indications for ED re-evaluation and additional outpatient follow up Discharge Plan Departure Patient Disposition: Home Clinical Impression: Needlestick injury accident Activity Restrictions/Additional Instructions: Thank you for coming to the [facility] Emergency Department today. As we discussed we have determined that this was blunt needle that has not been in contact with the any other patients which means we do not need testing for any communicable diseases. We have cleaned the wound. Please keep an eye on the wound for any signs of infection such as spreading redness, purulent drainage, or any other concerning signs or symptoms. I hope you feel better soon. Please follow up with your primary care provider within a week if your symptoms continue. If you do not have a primary care provider please contact the [facility] Resource line at [phone]. They will ask some questions about your medical history and help you get set up with a provider in the community. Prescriptions: No Action varenicline [[employer] Starting Month Box] 0.5 mg (11)- 1 mg (42) tablets,dose pack See Rx Instructions PO PER PKG DIR Qty: 53 0RF Rx Instructions: PO PER PKG DIR paroxetine HCl 30 mg tablet 30 mg PO DAILY tizanidine 2 mg tablet 2 mg PO BID lamotrigine [Lamictal] 100 mg tablet 300 mg PO DAILY Rx Instructions: pt tkes it in the afternoon buspirone 5 mg tablet 5 mg PO BID aspirin 81 mg Tablet 81 mg PO DAILY primidone 50 mg tablet 50 mg PO DAILY Referrals: Camilla Clifford MD [Primary Care Provider] - Stand Alone Forms: Patient Portal/API ED Sign-out <Juan Flores, DO - Last Filed: 01/07/24 18:34> [facility] Dr Flores Co-Sign Statement: I was available for consultation during this patient's emergency department visit. This chart is signed by myself for administrative purposes only. I did not have direct contact with this patient during this visit. They were seen independently by the APC.
--- NOTE | 2024-01-07 18:11 | PC.NURSE ---
OR nurse Minh verified that the patient as poked with a blunt needle that was used to draw up medication and it was found on the OR floor. provider aware,.
== END 2024-01-07 18:28 | disposition home or self-care (01) ==
PROVIDERS: Emergency Provider Physician Assistant Medical; PCP Family Medicine
DX: S69.92XA Unspecified injury of left wrist, hand and finger(s), initial encounter (principal); Z77.21 Contact with and (suspected) exposure to potentially hazardous body fluids; W46.0XXA Contact with hypodermic needle, initial encounter
CPT/HCPCS: 99281

== ENCOUNTER 2024-03-09 10:47 | Emergency (ER) | payer SELFPAY ==
[2023-07-11 19:40] VITALS: BMI 29.7
[2024-03-09] VITALS (57 sets, daily range): BP systolic 104–149; BP diastolic 64–94; PULSE 39–67; RESP 11–34; TEMP 36.9; O2SAT 95–100
--- NOTE | 2024-03-09 11:01 | EKG_ITS ---
[address] [address] Test Date: 2024-03-09 Pat Name: Brayden Luciano Department: Room: Gender: Male Senior Product Development Manager: YUNIOR : 1980 Requested By: Order Number: [id number] Reading MD: Facundo Parkinson Measurements Intervals [place] Rate: 63 P: 52 W[place]: 144 QRS: 36 QRSD: 82 T: 32 QT: 428 QTc: 437 Interpretive Statements Normal sinus rhythm with sinus arrhythmia Electronically Signed On 03-09-2024 13:39:43 PDT by Facundo Parkinson
--- NOTE | 2024-03-09 11:02 | DI.RAD.S_ITS ---
PROCEDURE: XR CHEST 1V INDICATIONS: chest pain TECHNIQUE: One view of the chest was acquired. COMPARISON: [facility], CR, XR CHEST 1V, 04/20/2023, 8:31. FINDINGS: Surgical changes and devices: Stable thoracic spine neurostimulator leads. Lungs and pleura: Lungs are clear. No pleural effusions or pneumothorax. Mediastinum: Mediastinal contours appear normal. Heart size is normal. Bones and chest wall: No suspicious bony lesions. Overlying soft tissues appear unremarkable. IMPRESSION: No acute cardiopulmonary abnormality is seen. Dictated by: Teri Razo MD, PhD on 03/09/2024 at 11:24 Approved by: Teri Razo MD, PhD on 03/09/2024 at 11:25
[2024-03-09 11:14] LABS: Add Manual Diff / Slide Review NO; Basophils Absolute Auto 0 /uL (0-100); Basophils Percent Auto 0.3 % (0-2); Eosinophils Absolute Auto 0 /uL (0-450); Eosinophils Percent Auto 0.3 % (2-4); Hematocrit 45.1 % (41-53); Hemoglobin 15.5 g/dL (13.5-17.5); Lymphocytes Absolute Auto 900 /uL (1100-4500); Lymphocytes Percent Auto 10.4 % (25-40); Mean Corpuscular HGB Conc 34.3 % (30-36); Mean Corpuscular Hemoglobin 31.4 PG (26-34); Mean Corpuscular Volume 91.6 fL (80-100); Monocytes Absolute Auto 600 /uL (0-900); Monocytes Percent Auto 6.4 % (3-14); Neutrophils Absolute Auto 7400 /uL (1500-7000); Neutrophils Percent Auto 82.6 % (50-75); Platelet Count 185 X10^3/uL (150-400); Red Blood Cell Count 4.92 X10^6/uL (4.5-5.9); Red Cell Distribution Width 13.3 % (11.6-14.8); White Blood Cell Count 8.9 X10^3/uL (4.5-11.0)
[2024-03-09 11:21] LABS: Prothrombin Time 11.2 SECONDS (9.4-12.5)
[2024-03-09 11:24] LABS: PTT Partial Thromboplastin Tim 36 SECONDS (25.1-36.5)
[2024-03-09 11:26] LABS: Alanine Aminotransferase 29 IU/L (<50); Albumin 4.7 g/dL (3.5-5.0); Albumin Globulin Ratio 1.6 (1.0-2.8); Alkaline Phosphatase 86 U/L (38-126); Aspartate Aminotransferase 41 IU/L (17-59); Bilirubin Total 0.6 mg/dL (0.2-1.3); Blood Urea Nitrogen 13 mg/dL (9-20); Calcium 9.9 mg/dL (8.4-10.2); Carbon Dioxide 28 mmol/L (22-32); Chloride 101 mmol/L (98-107); Creatine Kinase 427 U/L (55-170); Estimated Glomerular Filt Rate > 60 mL/min (>60); Glucose 113 mg/dL (70-100); HEMOLYSIS < 15 (0-50); Lipase 549 U/L (23-300); Magnesium 1.7 mg/dL (1.6-2.3); Sodium 135 mmol/L (137-145); Total Protein 7.7 g/dL (6.3-8.2)
--- NOTE | 2024-03-09 11:27 | PC.NURSE ---
Patient took their own 81mg ASA at home, order of Aspirin changed from 324mg to 243mg.
[2024-03-09] MEDS: ASPIRIN 81 MG CHEW TAB 243 MG PO (11:32)
--- NOTE | 2024-03-09 11:35 | ED_ITS ---
HPI - Chest Pain General Chief Complaint: Chest Pain Stated Complaint: chest pain, difficulty breathing Time Seen by Provider: 03/09/24 10:56 Source: patient Mode of arrival: Family Vehicle Limitations: no limitations History of Present Illness HPI narrative: 43-year-old gentleman presents with 3-4 days of increasing chest pain, exertional dyspnea and today with an episode of significant dyspnea and syncope brought in by medics. He did take some aspirin prior to arrival. He has had a prior NSTEMI. Describes no fever, cough, palpitations, lower extremity edema, nausea, vomiting, diarrhea Related Data Home Medications Medication Instructions Recorded Confirmed buspirone 5 mg tablet 5 mg PO BID 04/28/23 07/17/23 lamotrigine 100 mg tablet 300 mg PO DAILY 04/28/23 07/17/23 (Lamictal) aspirin 81 mg tablet 81 mg PO DAILY 07/11/23 07/17/23 primidone 50 mg tablet 50 mg PO DAILY 07/11/23 07/17/23 paroxetine HCl 30 mg tablet 30 mg PO DAILY 07/17/23 07/17/23 Previous Rx's Medication Instructions Recorded varenicline 0.5 mg (11)-1 mg (42) See Rx Instructions PO PER PKG DIR 06/09/23 tablets in a dose pack (Popbasictix #53 ea Starting Month Box) Allergies Allergy/AdvReac Type Severity Reaction Status Date / Time tramadol Allergy Verified 03/09/24 11:08 Review of Systems Review of Systems Narrative: Pertinent positive and negative findings as per HPI Patient History Medical History Chest pain Back pain Tremor Bipolar 1 disorder Renal cyst Surgical History History of cholecystectomy Social History marital status: unmarried,living together details: GF number of children: 1 household members: significant other occupational status: employed Previous occupational history: utilities Smoking Status: Current every day smoker Smoking Status: Current every day smoker tobacco type: cigarettes alcohol intake frequency: 0-2 drinks per day Alcohol type: beer Substance Use Type: does not use Exam Initial Vital Signs Initial Vital Signs: Vital Signs Pulse Rate 67 03/09/24 10:56 Blood Pressure 149/94 H 03/09/24 10:56 Pulse Oximetry 99 03/09/24 10:56 General: Appears anxious, holding his hand to his left chest, describes dyspnea with no tachypnea HEENT: Moist mucous membranes, normal sclera with reactive pupils, Respiratory: Lungs are clear to auscultation, no wheezing no rales no rhonchi. Full and symmetrical air movement Cardiac: Regular rate and rhythm no murmurs no bruits Abdomen: Soft, nontender, good bowel tones, no flank pain Skin: Warm and dry, no rashes Neurologic: Grossly neurologically intact with no obvious asymmetries or abnormalities Extremities: No trauma, well perfused Psych: Cooperative, appropriate insight and affect Course Orders Ordered: ED Orders 03/09/24 23:45 PTT Partial Thromboplastin Lennox Q6H Discontinued Medications Aspirin (Aspirin 81 Mg Chew Tab) 324 mg PO NOW ONE Stop: 03/09/24 11:03 Last Admin: 03/09/24 11:33 Dose: Not Given Documented By: VIKTOR Aspirin (Aspirin 81 Mg Chew Tab) 243 mg PO NOW ONE Stop: 03/09/24 11:28 Last Admin: 03/09/24 11:32 Dose: 243 mg Documented By: VIKTOR Heparin Sodium (Porcine) (Heparin 5,000 Unit/Ml Vial) 4,500 unit IV NOW ONE Stop: 03/09/24 11:41 Last Admin: 03/09/24 11:50 Dose: 4,500 unit Documented By: TAMANNA Heparin Sodium/Dextrose (Heparin Drip) 25,000 unit in 500 mls @ 17.962 mls/hr IV CONT RENNY; Protocol Last Titration: 03/09/24 19:33 Dose: 12 units/kg/hr, 17.962 mls/hr Documented By: CLAUDIO Co-signed By: TAMANNA Admin: 03/09/24 11:50 Dose: 12 units/kg/hr, 17.962 mls/hr Documented By: TAMANNA Co-signed By: DAVID Nitroglycerin (Nitroglycerin) 50 mg in 250 mls @ 1.5 mls/hr IV TITRATE RENNY; Protocol Last Titration: 03/09/24 19:33 Dose: 12.5 mcg/min, 3.75 mls/hr Documented By: Titration: 03/09/24 17:51 Dose: 12.5 mcg/min, 3.75 mls/hr Documented By: Titration: 03/09/24 16:12 Dose: 15 mcg/min, 4.5 mls/hr Documented By: Titration: 03/09/24 15:18 Dose: 10 mcg/min, 3 mls/hr Documented By: Admin: 03/09/24 14:15 Dose: 5 mcg/min, 1.5 mls/hr Documented By: CLAUDIO Sodium Chloride (Normal Saline 0.9%) 1,000 mls @ 1,000 mls/hr IV BOLUS ONE Stop: 03/09/24 19:15 Last Infusion: 03/09/24 19:33 Dose: 1,000 mls/hr Documented By: Admin: 03/09/24 18:35 Dose: 1,000 mls/hr Documented By: CLAUDIO Morphine Sulfate (Morphine 2 Mg/Ml Inj) 2 mg IV Q5MIN PRN PRN Reason: Chest Pain Last Admin: 03/09/24 14:51 Dose: 2 mg Documented By: Admin: 03/09/24 13:15 Dose: 2 mg Documented By: CLAUDIO Nitroglycerin (Nitroglycerin 0.4 Mg Sl Tab) 0.4 mg SL [id number] PRN PRN Reason: Chest Pain Last Admin: 03/09/24 12:52 Dose: 0.4 mg Documented By: Admin: 03/09/24 12:25 Dose: 0.4 mg Documented By: Admin: 03/09/24 11:48 Dose: 0.4 mg Documented By: TAMANNA Vital Signs Vital signs: Vital Signs - 8 hr 03/09/24 11:30 03/09/24 11:30 03/09/24 11:48 Pulse Rate 57 L 50 L Respiratory Rate 21 Blood Pressure 141/72 H 121/86 Pulse Oximetry 98 Oxygen Delivery Method 03/09/24 11:48 03/09/24 11:48 03/09/24 11:58 Pulse Rate 51 L Respiratory Rate 21 Blood Pressure 121/86 117/69 Pulse Oximetry 98 Oxygen Delivery Method 03/09/24 11:58 03/09/24 12:00 03/09/24 12:00 Pulse Rate 62 64 Respiratory Rate 19 20 Blood Pressure 112/69 Pulse Oximetry 96 96 Oxygen Delivery Method 03/09/24 12:22 03/09/24 12:22 03/09/24 12:25 Pulse Rate 51 L 55 L Respiratory Rate 18 Blood Pressure 147/78 H 147/68 H Pulse Oximetry 96 Oxygen Delivery Method 03/09/24 12:30 03/09/24 12:30 03/09/24 12:38 Pulse Rate 55 L Respiratory Rate 20 Blood Pressure 125/73 118/75 Pulse Oximetry 98 Oxygen Delivery Method 03/09/24 12:38 03/09/24 12:41 03/09/24 12:41 Pulse Rate 48 L 52 L Respiratory Rate 30 H 34 H Blood Pressure 148/68 H Pulse Oximetry 99 100 Oxygen Delivery Method 03/09/24 12:51 03/09/24 12:51 03/09/24 12:52 Pulse Rate 58 L 54 L Respiratory Rate 19 Blood Pressure 141/73 H 148/68 H Pulse Oximetry 99 Oxygen Delivery Method 03/09/24 13:00 03/09/24 13:01 03/09/24 13:01 Pulse Rate 54 L 55 L 51 L Respiratory Rate 17 22 11 L Blood Pressure 121/74 Pulse Oximetry 98 99 99 Oxygen Delivery Method Room Air 03/09/24 13:10 03/09/24 13:10 03/09/24 13:20 Pulse Rate 58 L Respiratory Rate 23 Blood Pressure 119/76 127/82 Pulse Oximetry 99 Oxygen Delivery Method 03/09/24 13:20 03/09/24 13:30 03/09/24 13:30 Pulse Rate 51 L 46 L Respiratory Rate 23 19 Blood Pressure 141/82 H Pulse Oximetry 99 100 Oxygen Delivery Method 03/09/24 13:41 03/09/24 13:41 03/09/24 13:50 Pulse Rate 49 L Respiratory Rate 19 Blood Pressure 138/71 138/81 Pulse Oximetry 99 Oxygen Delivery Method 03/09/24 13:50 03/09/24 14:00 03/09/24 14:00 Pulse Rate 51 L 50 L Respiratory Rate 21 20 Blood Pressure 139/82 Pulse Oximetry 100 99 Oxygen Delivery Method 03/09/24 14:10 03/09/24 14:10 03/09/24 14:15 Pulse Rate 51 L 52 L Respiratory Rate 23 Blood Pressure 133/84 141/86 H Pulse Oximetry 99 Oxygen Delivery Method 03/09/24 14:15 03/09/24 14:15 03/09/24 14:18 Pulse Rate 45 L 50 L Respiratory Rate 22 24 Blood Pressure 141/86 H Pulse Oximetry 100 99 Oxygen Delivery Method Room Air 03/09/24 14:18 03/09/24 14:21 03/09/24 14:21 Pulse Rate 47 L Respiratory Rate Blood Pressure 137/90 140/76 Pulse Oximetry 100 Oxygen Delivery Method 03/09/24 14:24 03/09/24 14:24 03/09/24 14:27 Pulse Rate 50 L 47 L Respiratory Rate 22 Blood Pressure 128/84 Pulse Oximetry 99 99 Oxygen Delivery Method 03/09/24 14:27 03/09/24 14:30 03/09/24 14:30 Pulse Rate 54 L Respiratory Rate 22 Blood Pressure 133/85 136/88 Pulse Oximetry 99 Oxygen Delivery Method 03/09/24 14:33 03/09/24 14:33 03/09/24 14:36 Pulse Rate 52 L 47 L Respiratory Rate 18 25 H Blood Pressure 145/83 H Pulse Oximetry 96 99 Oxygen Delivery Method 03/09/24 14:36 03/09/24 14:39 03/09/24 14:39 Pulse Rate 49 L Respiratory Rate 21 Blood Pressure 134/82 128/83 Pulse Oximetry 99 Oxygen Delivery Method 03/09/24 14:42 03/09/24 14:42 03/09/24 14:45 Pulse Rate 52 L 52 L Respiratory Rate 24 21 Blood Pressure 121/73 Pulse Oximetry 99 100 Oxygen Delivery Method Room Air 03/09/24 14:45 03/09/24 14:48 03/09/24 14:48 Pulse Rate 47 L Respiratory Rate 21 Blood Pressure 130/76 133/80 Pulse Oximetry 99 Oxygen Delivery Method 03/09/24 14:52 03/09/24 14:52 03/09/24 14:55 Pulse Rate 48 L 52 L Respiratory Rate 20 17 Blood Pressure 133/76 Pulse Oximetry 99 97 Oxygen Delivery Method 03/09/24 14:55 03/09/24 15:00 03/09/24 15:00 Pulse Rate 48 L Respiratory Rate 19 Blood Pressure 122/73 139/82 Pulse Oximetry 98 Oxygen Delivery Method 03/09/24 15:16 03/09/24 15:16 03/09/24 15:30 Pulse Rate 47 L 52 L Respiratory Rate 18 17 Blood Pressure 131/64 Pulse Oximetry 99 98 Oxygen Delivery Method Room Air 03/09/24 15:30 03/09/24 15:45 03/09/24 15:45 Pulse Rate 52 L Respiratory Rate 17 Blood Pressure 121/74 118/76 Pulse Oximetry 98 Oxygen Delivery Method 03/09/24 16:00 03/09/24 16:00 03/09/24 16:15 Pulse Rate 47 L Respiratory Rate 17 Blood Pressure 113/68 110/69 Pulse Oximetry 98 Oxygen Delivery Method Room Air 03/09/24 16:15 03/09/24 16:30 03/09/24 16:30 Pulse Rate 49 L 54 L Respiratory Rate 16 21 Blood Pressure 108/68 Pulse Oximetry 97 97 Oxygen Delivery Method Room Air 03/09/24 16:45 03/09/24 16:45 03/09/24 17:00 Pulse Rate 53 L 51 L Respiratory Rate 22 19 Blood Pressure 116/71 Pulse Oximetry 95 97 Oxygen Delivery Method 03/09/24 17:00 03/09/24 17:24 03/09/24 17:24 Pulse Rate 49 L Respiratory Rate 21 Blood Pressure 121/74 107/68 Pulse Oximetry 96 Oxygen Delivery Method Room Air 03/09/24 17:30 03/09/24 17:30 03/09/24 17:45 Pulse Rate 45 L Respiratory Rate 18 Blood Pressure 116/74 104/67 Pulse Oximetry 98 Oxygen Delivery Method 03/09/24 17:45 03/09/24 18:00 03/09/24 18:00 Pulse Rate 47 L 45 L Respiratory Rate 17 18 Blood Pressure 107/68 Pulse Oximetry 97 99 Oxygen Delivery Method 03/09/24 18:07 03/09/24 18:07 03/09/24 18:15 Pulse Rate 47 L 44 L Respiratory Rate 18 16 Blood Pressure 121/70 Pulse Oximetry 97 98 Oxygen Delivery Method 03/09/24 18:15 03/09/24 18:30 03/09/24 18:30 Pulse Rate 45 L Respiratory Rate 15 Blood Pressure 111/70 110/68 Pulse Oximetry 97 Oxygen Delivery Method Room Air 03/09/24 18:45 03/09/24 18:45 Pulse Rate 43 L Respiratory Rate 17 Blood Pressure 115/71 Pulse Oximetry 98 Oxygen Delivery Method Room Air MDM - Chest Pain Lab Data 03/09/24 11:07 03/09/24 11:07 Labs: Lab Results 03/09/24 03/09/24 03/09/24 Range/Units 11:07 14:10 17:46 WBC 8.9 (4.5-11.0) X10^3/uL RBC 4.92 (4.5-5.9) X10^6/uL Hgb 15.5 (13.5-17.5) g/dL Hct 45.1 (41-53) % MCV 91.6 (80-100) fL MCH 31.4 (26-34) PG MCHC 34.3 (30-36) % RDW 13.3 (11.6-14.8) % Plt Count 185 (150-400) X10^3/uL Neut % (Auto) 82.6 H (50-75) % Lymph % (Auto) 10.4 L (25-40) % [place] % (Auto) 6.4 (3-14) % Eos % (Auto) 0.3 L (2-4) % Baso % (Auto) 0.3 (0-2) % Neut # (Auto) 7400 H (8559-8478) /uL Lymph # (Auto) 900 L (5431-2902) /uL [place] # (Auto) 600 (0-900) /uL Eos # (Auto) 0 (0-450) /uL Baso # (Auto) 0 (0-100) /uL PT 11.2 (9.4-12.5) SECONDS INR 1.0 (0.9-1.3) APTT 36 72 H D (25.1-36.5) SECONDS Sodium 135 L (137-145) mmol/L Potassium 4.0 (3.4-5.1) mmol/L Chloride 101 (98-107) mmol/L Carbon Dioxide 28 (22-32) mmol/L BUN 13 (9-20) mg/dL Creatinine 1.00 (0.66-1.25) mg/dL Estimated GFR > 60 (>60) mL/min BUN/Creatinine Ratio 13.0 (6-22) Glucose 113 H (70-100) mg/dL Calcium 9.9 (8.4-10.2) mg/dL Magnesium 1.7 (1.6-2.3) mg/dL Total Bilirubin 0.6 (0.2-1.3) mg/dL AST 41 (17-59) IU/L ALT 29 (<50) IU/L Alkaline Phosphatase 86 (38-126) U/L Total Creatine Kinase 427 H (55-170) U/L Troponin I < 0.012 0.015 (0.01-0.034) ng/mL NT-Pro-B Natriuret Pep 95 (<125) pg/mL Total Protein 7.7 (6.3-8.2) g/dL Albumin 4.7 (3.5-5.0) g/dL Globulin 3.0 (1.7-4.1) g/dL Albumin/Globulin Ratio 1.6 (1.0-2.8) Lipase 549 H (23-300) U/L Imaging Data CT scan - abdomen/pelvis: Radiologist's Impression: PROCEDURE: CT ABDOMEN PELVIS W CON INDICATIONS: elevated lipase, chest pain TECHNIQUE: After the administration of intravenous contrast, axial sections acquired from the lung bases to the pubic symphysis. Coronal and sagittal reformats were performed. For radiation dose reduction, the following was used: automated exposure control, adjustment of mA and/or kV according to patient size. COMPARISON: [facility], CT, CT ABDOMEN PELVIS W CON, 07/17/2023, 12:13. FINDINGS: Image quality: Diagnostic. Lower Chest: No significant findings. ABDOMEN: Liver: No solid mass. Gallbladder: Surgically absent Biliary ducts: Mild chronic biliary prominence without obstruction noted, within normal limits post cholecystectomy Pancreas: No ductal dilation. Spleen: Size is within normal limits. Adrenal Glands: No adrenal nodules. Kidneys and Ureters: No hydronephrosis. No solid mass. No complex renal cystic lesion which requires follow up. Stomach and Bowel: Normal colonic caliber, without significant wall thickening. Peritoneum: No abnormal intraperitoneal fluid. No free air. Ventral Wall: No significant ventral hernia. Abdominal Nodes: No retroperitoneal or mesenteric adenopathy by size criteria. Vessels: Aorta and inferior vena cava are normal in size. PELVIS: Pelvic Organs: Unremarkable. Bladder: No bladder wall thickening, accounting for underdistention. Pelvic Nodes: No enlarged lymph nodes. Miscellaneous: No inguinal hernias are seen. Bones: No aggressive osseous abnormality. Dorsal column stimulator. IMPRESSION: 1. Remote cholecystectomy with mild chronic biliary ductal prominence. 2. No CT evidence of acute pancreatitis in this patient with an elevated lipase. 3. No acute abdominal process noted. Dictated by: Giancarlo Gill M.D. on 03/09/2024 at 12:39 MDM Narrative Medical decision making narrative: CC: Exertional dyspnea over the last 3-4 days with significant dyspnea and syncope now with ongoing chest pain Complicating co-morbidities: Bipolar disorder, possible schizophrenia, prior episodes of chest pain Data collected from: patient Medical records reviewed: Echocardiogram in July of this year shows normal LV size, wall thickness, wall motion and LV systolic function with ejection fraction at 55-60% Myocardial perfusion scan May of 2023 indicates low risk normal pharmacology nuclear stress test with atypical chest pain at rest that did worsen with Lexiscan Outpatient cardiology note from June 11 for evaluation of ongoing intermittent chest pain, cardiac rule out admission in April of 2023, Medical record view from [facility] indicates a diagnosis of anxiety, bipolar type 1, depression, schizophrenia, seizures, neuromuscular disorder, hypertension, depression Differential considered: Exertional dyspnea secondary to anxiety, unstable angina, NSTEMI, STEMI, severe anemia Exam documented above, pertinent findings include: Patient is anxious, clutching his chest, remainder of exam is benign and he is able to speak in complete sentences Lab Test results independently reviewed as above. Pertinent findings: CBC is unremarkable Chemistries are reassuring Total creatinine kinase is slightly elevated at 427 Initial troponin is undetectable ProBNP is within normal limits Lipase is slightly elevated at 549 Independently reviewed EKG: Sinus rhythm at a rate of 63 with no acute ischemia Imaging studies independently reviewed: Chest x-ray is unremarkable CT scan of the abdomen and pelvis does not suggest acute pancreatitis Consultations: Discussed with hospitalist at [facility]. With shared decision-making we felt that given his ongoing pain and likely need for catheterization that admission to [facility] was not going to be appropriate Beds are unavailable at [facility] today Treatments: With presentation notable for increasing exertional angina now with chest pain at rest and syncopal episode earlier today heparin was started. Sublingual nitro was partially effective in relieving his pain. He notes that the pain seems to be increasing Re-evaluations: Discussed findings with the patient. He is amenable to hospitalization Discussion: 43-year-old gentleman with rather classic presentation for unstable angina with increasing exertional dyspnea to the point where he had a syncopal episode today and is now having chest pain at rest. He did have a negative cardiac workup in May of this year. Has been relatively asymptomatic since July of this year. Symptoms and presentation were concerning enough that he was started on heparin on arrival. Nitroglycerin was minimally effective. Currently on a nitro drip. Slightly elevated lipase led to a CT scan that did not show any evidence of acute pancreatitis. Continues to complain of left- sided chest pain that is leaving him short of breath feels that it is heavy on his chest and radiating up to his neck and jaw. Initial troponin was unremarkable initial EKG does not suggest STEMI. At this point I think that he does need a cardiac rule out which may include cardiac intervention/catheterization. Currently [facility] has no beds available. We will contact [facility] 420[facility] after multiple phone calls, [facility] does have a telemetry bed. Have spoken with accepting physician . Reviewed care. They will contact with bed availability. We will remain on heparin and nitro drips. Patient is hemodynamically stable. Second troponin was equally unremarkable as was his 2nd EKG. Informed of need for transfer for further evaluation. 7pm transport should be arriving shortly for patient to go to [facility]. Throughout his ER visit he is continued to be increasingly bradycardic with heart rate in the now 38-45 range. You have been given a L of fluid and his blood pressure continues to be reassuring. His central chest pressure has been unchanged throughout his emergency department visit. I am reluctant to give this gentleman any atropine. This is a sinus bradycardia and he is otherwise hemodynamically stable. Phone call to [facility] to make sure that receiving doctors aware of the change to heart rate. Of note with activity sitting up and talking heart rate will increase to 50-55. Critical Care Time Critical Care Time Critical Care Time: Yes Total Critical Care Time: 48 Attestation: Critical care time is separate from other billable procedures. There is a high probability of a significant, sudden or life-threatening deterioration that requires my full and direct attention, intervention and personal management. This critical care time includes consultation with family and other consulting doctors, review of records, and interpretation of data from labs, EKGs and imaging as well as managements of unstable angina with IV heparin, IV nitrites, extensive time with finding available bed for transfer Discharge Plan Departure Patient Disposition: [facility] Clinical Impression: Angina pectoris, unstable, Bradycardia Prescriptions: No Action varenicline [Chantix Starting Month Box] 0.5 mg (11)- 1 mg (42) tablets,dose pack See Rx Instructions PO PER PKG DIR Qty: 53 0RF Rx Instructions: PO PER PKG DIR paroxetine HCl 30 mg tablet 30 mg PO DAILY lamotrigine [Lamictal] 100 mg tablet 300 mg PO DAILY Rx Instructions: pt tkes it in the afternoon buspirone 5 mg tablet 5 mg PO BID aspirin 81 mg Tablet 81 mg PO DAILY primidone 50 mg tablet 50 mg PO DAILY Referrals: Camilla Clifford MD [Primary Care Provider] -
[2024-03-09 11:37] LABS: NT-proBNP (BNP-Adult 18+) 95 pg/mL (<125); Troponin I < 0.012 ng/mL (0.01-0.034)
[2024-03-09] MEDS: NITROGLYCERIN 0.4 MG SL TAB SL ×3 (11:48→12:52)
[2024-03-09] MEDS: HEPARIN DRIP 25,000 UNIT/500 ML IV.SOLN 17.962 UNIT IV (11:50)
[2024-03-09] MEDS: HEPARIN 5,000 UNIT/ML VIAL 4500 UNIT IV (11:50)
--- NOTE | 2024-03-09 11:58 | DI.CT.S_ITS ---
PROCEDURE: CT ABDOMEN PELVIS W CON INDICATIONS: elevated lipase, chest pain TECHNIQUE: After the administration of intravenous contrast, axial sections acquired from the lung bases to the pubic symphysis. Coronal and sagittal reformats were performed. For radiation dose reduction, the following was used: automated exposure control, adjustment of mA and/or kV according to patient size. COMPARISON: [facility], CT, CT ABDOMEN PELVIS W CON, 07/17/2023, 12:13. FINDINGS: Image quality: Diagnostic. Lower Chest: No significant findings. ABDOMEN: Liver: No solid mass. Gallbladder: Surgically absent Biliary ducts: Mild chronic biliary prominence without obstruction noted, within normal limits post cholecystectomy Pancreas: No ductal dilation. Spleen: Size is within normal limits. Adrenal Glands: No adrenal nodules. Kidneys and Ureters: No hydronephrosis. No solid mass. No complex renal cystic lesion which requires follow up. Stomach and Bowel: Normal colonic caliber, without significant wall thickening. Peritoneum: No abnormal intraperitoneal fluid. No free air. Ventral Wall: No significant ventral hernia. Abdominal Nodes: No retroperitoneal or mesenteric adenopathy by size criteria. Vessels: Aorta and inferior vena cava are normal in size. PELVIS: Pelvic Organs: Unremarkable. Bladder: No bladder wall thickening, accounting for underdistention. Pelvic Nodes: No enlarged lymph nodes. Miscellaneous: No inguinal hernias are seen. Bones: No aggressive osseous abnormality. Dorsal column stimulator. IMPRESSION: 1. Remote cholecystectomy with mild chronic biliary ductal prominence. 2. No CT evidence of acute pancreatitis in this patient with an elevated lipase. 3. No acute abdominal process noted. Dictated by: Giancarlo Gill M.D. on 03/09/2024 at 12:39 Approved by: Giancarlo Gill M.D. on 03/09/2024 at 12:45
--- NOTE | 2024-03-09 12:27 | PC.NURSE ---
After first nitro, patient reports the pain in his chest reduced from an 8/10 to a 7/10.
--- NOTE | 2024-03-09 12:48 | PC.NURSE ---
Chest pain reduced from a 7/10 to a 6/10 after second dose of nitro.
--- NOTE | 2024-03-09 13:08 | PC.NURSE ---
Pain after 3rd nitro now a 5/10.
[2024-03-09] MEDS: MORPHINE 2 MG/ML INJ IV ×2 (13:15→14:51)
--- NOTE | 2024-03-09 13:58 | PC.NURSE ---
[facility] AND [facility] WERE BOTH REACHED FOR A POSSIBLE TRANSFER FOR PT'S UNSTABLE ANGINA. FACE SHEET, ED NOTE, EKG AND IMAGES WERE PUSHED TO BOTH FACILITIES.
--- NOTE | 2024-03-09 14:07 | EKG_ITS ---
[facility] [address] [place] [address] Test Date: 2024-03-09 Pat Name: Brayden Luciano Department: [facility] Room: Gender: Male Reimbursement Rep: SHANNAN : 1980 Requested By: Order Number: [id number] Reading MD: Facundo Parkinson Measurements Intervals [place] Rate: 47 P: 61 [place]: 146 QRS: 48 QRSD: 86 T: 49 QT: 472 QTc: 417 Interpretive Statements Sinus bradycardia Electronically Signed On 03-10-2024 8:26:55 PDT by Facundo Parkinson
[2024-03-09] MEDS: NITROGLYCERIN 50 MG/250 ML INFUS..BTL IV (14:15)
[2024-03-09 14:46] LABS: Troponin I 0.015 ng/mL (0.01-0.034)
--- NOTE | 2024-03-09 15:19 | PC.NURSE ---
Nitro drip is increased due to patient reports of 5/10 chest pain. Provider Amna is aware of patient vitals and pain.
--- NOTE | 2024-03-09 18:33 | PC.NURSE ---
Discussed with provider Amna about patient vital signs, including his softening blood pressure at times, and continued 5/10 chest pain. At this time to continue nitro at current rate and verbal order given for 1L bolus of NS.
[2024-03-09] MEDS: SODIUM CHLORIDE 0.9% 1,000 ML 1000 ML IV (18:35)
--- NOTE | 2024-03-09 18:46 | PC.NURSE ---
Addendum entered by Jerod Moncada R.N. 03/09/24 18:54: Lab calls and notifies BOBY[facility] Johnson APTT is 72. Original Note: Repeat APTT still showing pending. This RN calls lab try and get results so as to adjust heparin drip per protocol. Beater Operator Mariah states it will be a few more minutes and will call back with results.
[2024-03-09 18:53] LABS: PTT Partial Thromboplastin Tim 72 SECONDS (25.1-36.5)
--- NOTE | 2024-03-09 19:03 | PC.NURSE ---
This RN notifies provider Amna of patient consistent low HR dipping at times down to 36. Pt current HR is 38. Provider is aware. No new orders at this time. She states she will notify patch setter down at .
== END 2024-03-09 19:33 | disposition short-term general hospital (02) ==
PROVIDERS: Emergency Provider Emergency Medicine; PCP Family Medicine
DX: I20.0 Unstable angina (principal); R00.1 Bradycardia, unspecified; R07.9 Chest pain, unspecified; I49.8 Other specified cardiac arrhythmias; R79.89 Other specified abnormal findings of blood chemistry
CPT/HCPCS: 36415; 71045; 74177; 80053; 82550; 83690; 83735; 83880; 84484; 85025; 85610; 85730; 93005; 96365; 96366; 96368; 96375; 96376; 99285; 99291; J1644; J2270; Q9967

== ENCOUNTER 2024-06-24 19:25 | Emergency (ER) | payer OTHER, SELFPAY ==
[2023-07-11 19:40] VITALS: BMI 29.7
[2024-06-24] VITALS (9 sets, daily range): BP systolic 106–136; BP diastolic 55–94; PULSE 61–82; RESP 12–19; TEMP 36.8; O2SAT 96–99; BMI 25.0
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
[2024-06-24] MEDS: CYCLOBENZAPRINE 10 MG TABLET PO (23:01)
[2024-06-24] MEDS: NAPROXEN 250 MG TABLET 500 MG PO (23:02)
== END 2024-06-24 23:21 | disposition home or self-care (01) ==
PROVIDERS: Emergency Provider Student in an Organized Health Care Education/Training Program; PCP Family Medicine
DX: S13.9XXA Sprain of joints and ligaments of unspecified parts of neck, initial encounter (principal); V49.9XXA Car occupant (driver) (passenger) injured in unspecified traffic accident, initial encounter
CPT/HCPCS: 70450; 72125; 99284

== ENCOUNTER 2024-07-07 10:29 | Emergency (ER) | payer OTHER, SELFPAY ==
[2023-07-11 19:40] VITALS: BMI 29.7
[2024-07-07 10:57] VITALS: BP 118/75; PULSE 65; RESP 14; TEMP 36.8; O2SAT 99; BMI 24.5
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
[2024-07-07] MEDS: KETOROLAC 30 MG/ML VIAL IM (14:07)
[2024-07-07] MEDS: LIDOCAINE 5% PATCH 1 EACH TOP ×2 (14:07→15:58)
[2024-07-07] MEDS: predniSONE 20 MG TABLET 40 MG PO (14:07)
[2024-07-07 15:10] VITALS: BP 126/70; PULSE 45; RESP 18; TEMP 36.5; O2SAT 100
[2024-07-07] MEDS: HYDROCODONE/ACET 5/325 TABLET 1 TAB PO (15:58)
[2024-07-07 16:16] VITALS: BP 124/64; PULSE 50; RESP 16; TEMP 36.6; O2SAT 100
== END 2024-07-07 16:39 | disposition home or self-care (01) ==
PROVIDERS: Emergency Provider Physician Assistant; PCP Family Medicine
DX: S16.1XXA Strain of muscle, fascia and tendon at neck level, initial encounter (principal); M54.16 Radiculopathy, lumbar region; M54.50 Low back pain, unspecified; V89.2XXA Person injured in unspecified motor-vehicle accident, traffic, initial encounter
CPT/HCPCS: 72128; 72131; 96372; 99284; J1885